=== PATIENT | female | born 1970 | race Caucasian/White ===

== ENCOUNTER → 2024-10-05 | Outpatient (CLI) | payer OTHER, SELFPAY ==
--- NOTE | 2024-10-05 15:59 | CT_ITS ---
PROCEDURE: EXTREMITY LOWER WITHOUT CONTRA 10/05/2024 REASON FOR EXAM: POST TRAUMATIC OA TECHNIQUE: EXTREMITY LOWER WITHOUT CONTRA Coronal and Sagittal reconstruction series were provided. CONTRAST: None One or more dose reduction techniques were used (e.g., Automated exposure control, adjustment of the mA and/or kV according to patient size, use of iterative reconstruction technique). RADIATION DOSE SUMMARY: DLP: 1368 mGycm COMPARISON: None FINDINGS: There is severe tricompartment osteoarthritis, most severe in the medial compartment. There is joint space narrowing, subcortical cyst formation, and marginal osteophytes. No acute fracture or dislocation is identified. There is a 1.1 x 0.6 cm corticated osteochondral fragment in the superior lateral joint space. There is a trace joint effusion. There is a 4.2 cm cyst in the left adnexa partly visible. There is no visible atherosclerosis. CT/Extremity Lower without Contra IMPRESSION: There is a 4.2 cm cyst in the left adnexa partly visible. Ultrasound correlati on is recommended. There is severe tricompartment osteoarthritis, most severe in the medial compar tment. There is joint space narrowing, subcortical cyst formation, and marginal osteop hytes. Reading Location: [facility]
== END | disposition home or self-care (01) ==
LOC: CT 15:56
PROVIDERS: PCP Nurse Practitioner Family; Referring Provider Orthopaedic Surgery; Visit Provider Orthopaedic Surgery
DX: M17.32 Unilateral post-traumatic osteoarthritis, left knee (principal)
CPT/HCPCS: 73700

== ENCOUNTER → 2024-10-24 | Outpatient (CLI) | payer OTHER, SELFPAY ==
--- NOTE | 2024-10-24 10:11 | EKG12_ITS ---
Test Reason : PREOP Blood Pressure : */* mmHG Vent. Rate : 71 BPM Atrial Rate : 71 BPM P-R Int : 152 ms QRS Dur : 84 ms QT Int : 372 ms P-R-T Axes : -26 6 13 degrees QTcB Int : 404 ms Normal sinus rhythm vs low Atrial Rhythm Otherwise normal ECG Confirmed by Frank Delgado ([id number]), web editor NURIA INIGUEZ ([id number]) on 10/24/2024 12:53:19 PM Referred By: Clemente Moseley Confirmed By: Frank Delgado
[2024-10-24 11:11] LABS: Hematocrit 45.1 % (37-47); Hemoglobin 14.8 g/dL (12.0-15.0); Immature Granulocytes Count 0.020 X10^3/uL (0.0-0.0); Mean Corp Hgb Conc 32.8 g/dL (32-36); Mean Corpuscular Volume 93.0 fL (81-99); Mean Platelet Vol. 9.8 fl (6.2-12.0); NRBC Flagged by Analyzer 0 % (0-5); Platelet Count 277 K/mm3 (150-450); RBC Distribution Width CV 14.5 % (11.6-14.6); RBC Distribution Width SD 49.1 fl (35.1-43.9); Red Blood Count 4.85 M/mm3 (4.2-5.4); White Blood Count 4.6 K/mm3 (4.4-11.0)
[2024-10-24 11:48] LABS: Albumin, Serum 4.1 g/dL (3.5-5.0); Anion Gap 11 (5-15); BUN 11 mg/dL (4-19); BUN/Creat Ratio 17.5 RATIO (10-20); Calcium,Total 9.1 mg/dL (7.6-11.0); Carbon Dioxide 25.1 mmol/L (21.0-32.0); Chloride 104 mmol/L (98-108); Glucose 90 mg/dL (70-99); Potassium 4.7 mmol/L (3.3-5.1)
--- OUTSIDE RECORDS SUMMARY | 2024-10-24 18:07 | XMS RPT_ITS | CCD ---
Author Organization 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 Cornejo Attending Provider Dr. Clemente Moseley MD Referring Provider Tal HAND FRETTED INSTRUMENT MAKER-Adin Muniz Primary Care Provider Adin Peters Primary Care Prov ider ADIN PARADA Primary Care UnavailClemente Vega Referring Unavailable Clemente Moseley Attending Unavailable Adin Parada NP Primary Care Unavailable Adin Parada NP Primary Care Unavailable Clemente Moseley Referring Unavailable Clemente Moseley Attending Unavailable ADIN PARADA Attending Unavailable ADIN PARADA Primary Care Unavailable ADIN PARADA Referring Unavailable TAL ADIN C Primary Care Unavailable ADIN PARADA Referring Unavailable ADIN PARADA Primary Care Unavailable Medications Current Medications Medication Drug Class(es) Dates Sig (Normalized) Sig (Original) multivit-minerals/fo lic acid (MULTIVITAMIN GUMMIES ORAL) (9 sources) multivit-mineral s/f olic acid (MULTIVITAMIN GUMMIES ORAL) Take by mouth. Active predniSONE 10 mg oral tablet (9 sources) Start: 10-13-2023 predniSONE (DELTASONE) 10 mg tablet Take 4 tablets for 3 days, then 2 tablets for 3 days, then 1 tablet for 3 days, then stop 21 tablet 10/13/2023 Active Problems Active Problems Problem Classification Problem Date Documented Date Episodic/Chronic E Codes: Fall (3 sources) Fall; Translations: [Unspecified fall, initial encounter] Onset: 10-17-2024 10-17-2024 Episodic Hypertension with complications and secondary hypertension (3 sources) Secondary hypertension; Translations: [Secondary hypertension, unspecified] Onset: 10-17-2024 10-17-2024 Chronic Lymphadenitis (3 sources) Axillary lymphadenopathy; Translations: [Localized enlarged lymph nodes] Onset: 12-15-2023 11-25-2023 Episodic Osteoarthritis (2 sources) Osteoarthrosis, localized, not specified whether primary or secondary, lower leg; Translations: [Unilateral post-traumatic osteoarthritis, left knee] Onset: 11-06-2014 Chronic Other eye disorders (1 source) Vitreous floaters of left eye; Translations: [Other vitreous opacities, left eye] 10-13-2023 Chronic Other eye disorders (1 source) Ptosis of left eyelid; Translations: [Unspecified ptosis of left eyelid] 10-13-2023 Episodic Other eye disorders (1 source) Swelling of eyelid; Translations: [Edema of left eye, unspecified eyelid] 10-13-2023 Episodic Other eye disorders (1 source) Ptosis of left eyebrow; Translations: [Brow ptosis, left] 11-11-2023 Episodic Other eye disorders (1 source) Dermatochalasis of left upper eyelid; Translations: [Dermatochalasis of left upper eyelid] 11-11-2023 Episodic Other non-traumatic joint disorders (2 sources) Pain in left knee; Translations: [Pain in joint, lower leg] Episodic Other skin disorders (1 source) Breast changes; Translations: [Changes in skin texture] 11-10-2023 Episodic Superficial injury; contusion (3 sources) Hematoma of scalp; Translations: [Contusion of scalp, initial encounter] Onset: 10-17-2024 10-17-2024 Episodic Past or Other Problems Problem Classification Problem Date Documented Da te Episodic/Chronic E Codes: Natural/environment (2 sources) Insect bite - wound; Translations: [Bitten or stung by nonvenomous insect and other nonvenomous arthropods, subsequent encounter] Onset: 11-10-2023 11-10-2023 Episodic Immunizations and screening for infectious disease (9 sources) Patient encounter status; Translations: [Encounter for immunization] Onset: 11-10-2023 11-10-2023 Episodic Joint disorders and dislocations; trauma-related (2 sources) Tear of medial cartilage or meniscus of knee, current; Translations: [TEAR MED MENISC KNEE-CUR] Onset: 11-06-2014 Episodic Neoplasms of unspecified nature or uncertain behavior (2 sources) Neoplasm of uncertain behavior of skin; Translations: [Neoplasm of uncertain behavior of skin] Onset: 11-10-2023 11-10-2023 Episodic Other bone disease and musculoskeletal deformities (1 source) Other disorders of bone and cartilage; Translations: [BONE T CARTILAGE DIS N] Onset: 11-06-2014 Episodic Other connective tissue disease (1 source) Synovial cyst of popliteal space; Translations: [POPLITEAL SYNOVIAL CYST] Onset: 11-06-2014 Episodic Other non-traumatic joint disorders (1 source) Effusion of joint, lower leg; Translations: [JOINT EFFUSION-L/LEG] Onset: 11-06-2014 Episodic Other screening for suspected conditions (not mental disorders or infectious disease) (9 sources) Cancer cervix screening status; Translations: [Encounter for screening for malignant neoplasm of cervix] Onset: 11-10-2023 11-10-2023 Episodic Other skin disorders (1 source) Changes in skin texture; Translations: [Change of skin of breast] Onset: 11-10-2023 Episodic Unclassified (1 source) TEAR MED MENISC KNEE-CUR; Translations: [TEAR MED MENISC KNEE-CUR] Onset: 11-06-2014 Results Test Name Value Interpretation Reference Range Facility [facility] 10-17-2024 Bacteria identified Cx Nom (U) Test: Urine Culture Specimen Source: Clean Catch/Voided Specimen Type: Urine Specimen Date: 10/17/2024 1621 Result Date: 10/18/2024 1420 Result Status: Final result Abnormal: No Resulting Lab: [facility] [address] [address] CULTURE Growth indicates contamination with mixed bacterial mart. Repeat culture if clinically indicated. [facility] Comment on above: Performed By: #### 6 30-4 #### ANTWAN Zhang ([id number]) [facility] ([facility]) [address] [place] [address] CBC W Auto Differential pane l (Bld)on 10-17-2024 Basophils (Bld) [#/Vol] 0.04 10*3/uL [facility] Basophils/100 WBC (Bld) 0.6 % 0.0 - 2.0 % [facility] Eosinophils (Bld) [#/Vol] 0.07 10*3/uL [facility] Eosinophils/100 WBC (Bld) 1.0 % 0.0 - 6.0 % [facility] Erythrocyte distribution width (RBC) [Ratio] 14.5 % 11.5 - 14.5 % [facility] Hematocrit (Bld) [Volume fraction] 47.3 % High 36.0 - 46.0 % [facility] Hemoglobin (Bld) [Mass/Vol] 15.3 g/dL 12.0 - 16.0 g/dL [facility] Immature granulocytes (Bld) [#/Vol] 0.02 10*3/uL [facility] Immature granulocytes/100 WBC (Bld) 0.3 % 0.0 - 0.9 % [facility] Comment on above: Immature Granulocyte Count (IG) includes promyelocytes, myelocytes and metamyelocytes but does not include bands. Percent differential counts (%) should be interpreted in the context of the absolute cell counts (cells/UL). Interpretation and review of laboratory results Abnormal [facility] Lymphocytes (Bld) [#/Vol] 1.36 10*3/uL [facility] Lymphocytes/100 WBC (Bld) 19.7 % 13.0 - 44.0 % [facility] MCH (RBC) [Entitic mass] 30.6 pg 26.0 - 34.0 pg [facility] MCHC (RBC) [Mass/Vol] 32.3 g/dL 32.0 - 36.0 g/dL [facility] MCV (RBC) [Entitic vol] 95 fL 80 - 100 fL [facility] Monocytes (Bld) [#/Vol] 0.64 10*3/uL [facility] Monocytes/100 WBC (Bld) 9.2 % 2.0 - 10.0 % [facility] Neutrophils (Bld) [#/Vol] 4.79 10*3/uL [facility] Comment on above: Percent differential counts (%) should be interpreted in the context of the absolute cell counts (cells/uL). Neutrophils/100 WBC (Bld) 69.2 % 40.0 - 80.0 % [facility] Nucleated RBC/100 WBC (Bld) [Ratio] 0.0 % [facility] Platelets (Bld) [#/Vol] 300 10*3/uL [facility] RBC (Bld) [#/Vol] 5.00 10*6/uL [facility] WBC (Bld) [#/Vol] 6.9 10*3/uL [facility] Basophils (Bld) [#/Vol] 0.04 x10*3/uL Normal 0.00-0.10 [facility] Comment on above: Performed By: #### 5 7021-8 #### REYNALDO MASTERS ([id number]) [facility] ([facility]) [address] [place] [address] Basophils/100 WBC (Bld) 0.6 % Normal 0.0-2.0 [facility] Comment on above: Performed By: #### 5 7021-8 #### REYNALDO MASTERS ([id number]) [facility] ([facility]) [address] [place] [address] Eosinophils (Bld) [#/Vol] 0.07 x10*3/uL Normal 0.00-0.70 [facility] Comment on above: Performed By: #### 5 7021-8 #### RYENALDO MASTERS ([id number]) [facility] ([facility]) [address] [place] [address] Eosinophils/100 WBC (Bld) 1.0 % Normal 0.0-6.0 [facility] Comment on above: Performed By: #### 5 7021-8 #### REYNALDO MASTERS ([id number]) [facility] ([facility]) [address] [place] [address] Erythrocyte distribution width (RBC) [Ratio] 14.5 % Normal 11.5-14.5 [facility] Comment on above: Performed By: #### 5 7021-8 #### REYNALDO MASTERS ([id number]) [facility] ([facility]) [address] [place] [address] Hematocrit (Bld) [Volume fraction] 47.3 % High 36.0-46.0 [facility] Comment on above: Performed By: #### 5 7021-8 #### REYNALDO MASTERS ([id number]) [facility] ([facility]) [address] [place] [address] Hemoglobin (Bld) [Mass/Vol] 15.3 g/dL Normal 12.0-16.0 [facility] Comment on above: Performed By: #### 5 7021-8 #### REYNALDO MASTERS ([id number]) [facility] ([facility]) [address] [place] [address] Immature granulocytes (Bld) [#/Vol] 0.02 x10*3/uL Normal 0.00-0.70 [facility] Comment on above: Performed By: #### 5 7021-8 #### REYNALDO MASTERS ([id number]) [facility] ([facility]) [address] [place] [address] Immature granulocytes/100 WBC (Bld) 0.3 % Normal 0.0-0.9 [facility] Comment on above: Result Comment: Roz ture Granulocyte Count (IG) includes promyelocytes, myelocytes and metamyelocytes but does not include bands. Percent differential counts (%) should be interpreted in the context of the absolute cell counts (cells/UL). Performed By: #### 5 7021-8 #### REYNALDO MASTERS ([id number]) [facility] ([facility]) [address] [place] [address] Lymphocytes (Bld) [#/Vol] 1.36 x10*3/uL Normal 1.20-4.80 [facility] Comment on above: Performed By: #### 5 7021-8 #### REYNALDO MASTERS ([id number]) [facility] ([facility]) [address] [place] [address] Lymphocytes/100 WBC (Bld) 19.7 % Normal 13.0-44.0 [facility] Comment on above: Performed By: #### 5 7021-8 #### REYNALDO MASTERS ([id number]) [facility] ([facility]) [address] [place] [address] MCH (RBC) [Entitic mass] 30.6 pg Normal 26.0-34.0 [facility] Comment on above: Performed By: #### 5 7021-8 #### REYNALDO MASTERS ([id number]) [facility] ([facility]) [address] [place] [address] MCHC (RBC) [Mass/Vol] 32.3 g/dL Normal 32.0-36.0 [facility] Comment on above: Performed By: #### 7021-8 #### REYNALDO MASTERS ([id number]) [facility] ([facility]) [address] [place] [address] MCV (RBC) [Entitic vol] 95 fL Normal 80-100 [facility] Comment on above: Performed By: #### 5 7021-8 #### REYNALDO MASTERS ([id number]) [facility] ([facility]) [address] [place] [address] Monocytes (Bld) [#/Vol] 0.64 x10*3/uL Normal 0.10-1.00 [facility] Comment on above: Performed By: #### 5 7021-8 #### REYNALDO MASTERS ([id number]) [facility] ([facility]) [address] [place] [address]84[address] Monocytes/100 WBC (Bld) 9.2 % Normal 2.0-10.0 [facility] Comment on above: Performed By: #### 5 7021-8 #### REYNALDO MASTERS ([id number]) [facility] ([facility]) [address] [place] [address] Neutrophils (Bld) [#/Vol] 4.79 x10*3/uL Normal 1.20-7.70 [facility] Comment on above: Result Comment: Perc ent differential counts (%) should be interpreted in the context of the absolute cell counts (cells/uL). Performed By: #### 5 7021-8 #### REYNALDO MASTERS ([id number]) [facility] ([facility]) [address] [place] [address]87[address] Neutrophils/100 WBC (Bld) 69.2 % Normal 40.0-80.0 [facility] Comment on above: Performed By: #### 5 7021-8 #### REYNALDO MASTERS ([id number]) [facility] ([facility]) [address] [place] [address]17[address] Nucleated RBC/100 WBC (Bld) [Ratio] 0.0 /100 WBCs Normal 0.0-0.0 [facility] Comment on above: Performed By: #### 5 7021-8 #### REYNALDO MASTERS ([id number]) [facility] ([facility]) [address] [place] [address] Platelets (Bld) [#/Vol] 300 x10*3/uL Normal 150-450 [facility] Comment on above: Performed By: #### 5 7021-8 #### REYNALDO MASTERS ([id number]) [facility] ([facility]) [address] [place] [address] RBC (Bld) [#/Vol] 5.00 x10*6/uL Normal 4.00-5.20 [facility] Comment on above: Performed By: #### 5 7021-8 #### REYNALDO MASTERS ([id number]) [facility] ([facility]) [address] [place] [address]19 WBC (Bld) [#/Vol] 6.9 x10*3/uL Normal 4.4-11.3 [facility] Comment on above: Performed By: #### 5 7021-8 #### REYNALDO MASTERS ([id number]) [facility] ([facility]) [address] [place] [address] CT HEAD WO IV CONTRASTon CT HEAD WO IV CONTRAST Interpreted By: Amrita Cohn, STUDY: CT HEAD WO IV CONTRAST; 10/17/2024 4:19 pm INDICATION: Signs/Symptoms:facial injury. COMPARISON: None. ACCESSION NUMBER(S): [id number] ORDERING CLINICIAN: TJ LEZAMA TECHNIQUE: Axial images of 5 mm thickness were obtained through the head without intravenous contrast sagittal and coronal reconstructions were acquired. FINDINGS: BRAIN PARENCHYMA: Park-white matter interface well maintained. No masses are seen. No mass effect. HEMORRHAGE: None. VENTRICLES and EXTRA-AXIAL SPACES: Normal size. INTRACRANIAL VESSELS: No atherosclerotic calcification. EXTRACRANIAL SOFT TISSUES: Left frontal scalp hematoma is noted. PARANASAL SINUSES/MASTOIDS: Within normal limits. CALVARIUM: No destructive lesion or fracture. IMPRESSION: No acute intracranial abnormality. Small left frontal scalp hematoma. MACRO: None Signed by: Amrita Cohn 10/17/2024 5:08 PM Dictation workstation: [id number] [facility] CT Head WO contraston 2024 No acute intracrania l abnormality. Small left frontal scalp hematoma. MACRO: None Signed by: Amrita Cohn 10/17/2024 5:08 PM Dictation workstation: [id number] [facility]ODAL Interpreted By: Amrita Cohn, STUDY: CT HEAD WO IV CONTRAST; 10/17/2024 4:19 pm INDICATION: Signs/Symptoms:facial injury. COMPARISON: None. ACCESSION NUMBER(S): [id number] ORDERING CLINICIAN: TJ ELZAMA TECHNIQUE: Axial images of 5 mm thickness were obtained through the head without intravenous contrast sagittal and coronal reconstructions were acquired. FINDINGS: BRAIN PARENCHYMA: Park-white matter interface well maintained. No masses are seen. No mass effect. HEMORRHAGE: None. VENTRICLES and EXTRA-AXIAL SPACES: Normal size. INTRACRANIAL VESSELS: No atherosclerotic calcification. EXTRACRANIAL SOFT TISSUES: Left frontal scalp hematoma is noted. PARANASAL SINUSES/MASTOIDS: Within normal limits. CALVARIUM: No destructive lesion or fracture. [facility] MM[facility]AL Amrita Cohn MD - 10/17/2024 Interpreted By: Amrita Cohn, STUDY: CT HEAD WO IV CONTRAST; 10/17/2024 4:19 pm INDICATION: Signs/Symptoms:facial injury. COMPARISON: None. ACCESSION NUMBER(S): [id number] ORDERING CLINICIAN: TJ LEZAMA TECHNIQUE: Axial images of 5 mm thickness were obtained through the head without intravenous contrast sagittal and coronal reconstructions were acquired. FINDINGS: BRAIN PARENCHYMA: Park-white matter interface well maintained. No masses are seen. No mass effect. HEMORRHAGE: None. VENTRICLES and EXTRA-AXIAL SPACES: Normal size. INTRACRANIAL VESSELS: No atherosclerotic calcification. EXTRACRANIAL SOFT TISSUES: Left frontal scalp hematoma is noted. PARANASAL SINUSES/MASTOIDS: Within normal limits. CALVARIUM: No destructive lesion or fracture. IMPRESSION: No acute intracranial abnormality. Small left frontal scalp hematoma. MACRO: None Signed by: Amrita Cohn 10/17/2024 5:08 PM Dictation workstation: [id number] [facility] Work Phone: Radiology Study observation (narrative) [facility] Work Phone: CT Head WO contrastOrdered B y: Amrita Cohn on 10-17-2024 [facility] Work Phone: Coagulation tissue factor in ducedon 10-17-2024 PT Coag (PPP) [Time] 12.0 s Normal 9.8-12.4 [facility] Comment on above: Performed By: #### 5 902-2 #### JACOBS GUERRERO ([id number]) [facility] ([facility]) [address] [place] [address] Comprehensive metabolic 2000 panelon 10-17-2024 Albumin BCP dye [Mass/Vol] 4.1 g/dL 3.4 - 5.0 g/dL [facility] ALP [Catalytic activity/Vol] 72 U/L 33 - 110 U/L [facility] ALT With P-5'-P [Catalytic activity/Vol] 13 U/L 7 - 45 U/L [facility] Comment on above: Patients treated wit h Sulfasalazine may generate falsely decreased results for ALT. Anion gap [Moles/Vol] 11 mmol/L 10 - 20 mmol/L [facility] AST With P-5'-P [Catalytic activity/Vol] 13 U/L 9 - 39 U/L [facility] Bilirubin [Mass/Vol] 0.7 mg/dL 0.0 - 1 .2 mg/dL [facility] Calcium [Mass/Vol] 9.3 mg/dL 8.6 - 10. 3 mg/dL [facility] Chloride [Moles/Vol] 103 mmol/L 98 - 10 7 mmol/L [facility] CO2 [Moles/Vol] 28 mmol/L 21 - 32 mmol/L [facility] Creatinine [Mass/Vol] 1.06 mg/dL High 0.50 - 1.05 mg/dL [facility] GFR/1.73 sq M.predicted among non-blacks MDRD (S/P/Bld) [Vol rate/Area] 62 mL/min/{1.73_m2} - PINF [facility] Comment on above: Calculations of jose rafael mated GFR are performed using the 2020 CKD-EPI Study Refit equation without the race variable for the IDMS-Traceable creatinine methods. https://jasn.asnjournals.org/content/early//ASN.968184 4313 Glucose [Mass/Vol] 99 mg/dL 74 - 99 mg/dL [facility] Interpretation and review of laboratory results Abnormal [facility] Potassium [Moles/Vol] 4.1 mmol/L 3.5 - 5.3 mmol/L [facility] Protein [Mass/Vol] 6.9 g/dL 6.4 - 8.2 g/dL [facility] Sodium [Moles/Vol] 138 mmol/L 136 - 145 mmol/L [facility] Urea nitrogen [Mass/Vol] 16 mg/dL 6 - 23 mg/dL [facility] Albumin BCP dye [Mass/Vol] 4.1 g/dL Normal 3.4-5.0 [facility] Comment on above: Performed By: #### 2 4323-8 #### JACOBS GUERRERO ([id number]) [facility] ([facility]) [address] [place] [address] ALP [Catalytic activity/Vol] 72 U/L Normal 33-110 [facility] Comment on above: Performed By: #### 2 4323-8 #### REYNALDO MASTERS ([id number]) [facility] ([facility]) [address] [place] [address] ALT With P-5'-P [Catalytic activity/Vol] 13 U/L Normal 7-45 [facility] Comment on above: Result Comment: Mariam ents treated with Sulfasalazine may generate falsely decreased results for ALT. Performed By: #### 2 4323-8 #### REYNALDO MASTERS ([id number]) [facility] ([facility]) [address] [place] [address] Anion gap [Moles/Vol] 11 mmol/L Normal 10-20 [facility] Comment on above: Performed By: #### 2 432-8 #### REYNALDO MASTERS ([id number]) [facility] ([facility]) [address] [place] [address] AST With P-5'-P [Catalytic activity/Vol] 13 U/L Normal 9-39 [facility] Comment on above: Performed By: #### 2 432-8 #### REYNALDO MASTERS ([id number]) [facility] ([facility]) [address] [place] [address] Bilirubin [Mass/Vol] 0.7 mg/dL Normal 0.0-1.2 [facility] Comment on above: Performed By: #### 2 432-8 #### REYNALDO MASTERS ([id number]) [facility] ([facility]) [address] [place] [address] Calcium [Mass/Vol] 9.3 mg/dL Normal 8.6-10.3 [facility] Comment on above: Performed By: #### 2 4323-8 #### REYNALDO MASTERS ([id number]) [facility] ([facility]) [address] [place] [address] Chloride [Moles/Vol] 103 mmol/L Normal 98-107 [facility] Comment on above: Performed By: #### 2 4323-8 #### REYNALDO MASTERS ([id number]) [facility] ([facility]) [address] [place] [address] CO2 [Moles/Vol] 28 mmol/L Normal 21-32 [facility] Comment on above: Performed By: #### 2 4323-8 #### REYNALDO MASTERS ([id number]) [facility] ([facility]) [facility] [place] [address] Creatinine [Mass/Vol] 1.06 mg/dL High 0.50-1.05 [facility] Comment on above: Performed By: #### 2 432-8 #### REYNALDO MASTERS ([id number]) [facility] ([facility]) [address] [place] [address]111 Glomerular filtration rate 62 mL/min/1.73m*2 Normal >60 [facility] Comment on above: Result Comment: Calc ulations of estimated GFR are performed using the 2020 CKD-EPI Study Refit equation without the race variable for the IDMS-Traceable creatinine methods. https://jasn.asnjournals.org/content/early//ASN.733937 6531 Performed By: #### 2 4323-8 #### REYNALDO MASTERS ([id number]) [facility] ([facility]) [address] [place] [address] 84329 Glucose [Mass/Vol] 99 mg/dL Normal 74-99 [facility] Comment on above: Performed By: #### 2 4323-8 #### REYNALDO MASTERS ([id number]) [facility] ([facility]) [address] [place] [address] Potassium [Moles/Vol] 4.1 mmol/L Normal 3.5-5.3 [facility] Comment on above: Performed By: #### 2 4323-8 #### REYNALDO MASTERS ([id number]) [facility] ([facility]) [facility] [place] [address] Protein [Mass/Vol] 6.9 g/dL Normal 6.4-8.2 [facility] Comment on above: Performed By: #### 2 4323-8 #### REYNALDO MASTERS ([id number]) [facility] ([facility]) [address] [id number] Sodium [Moles/Vol] 138 mmol/L Normal 136-145 [facility] Comment on above: Performed By: #### 2 4323-8 #### REYNALDO MASTERS ([id number]) [facility] ([facility]) [facility] [place] [address] Urea nitrogen [Mass/Vol] 16 mg/dL Normal 6-23 [facility] Comment on above: Performed By: #### 2 4323-8 #### JACOBS GUERRERO ([id number]) [facility] ([facility]) [address] [place] [address] ECG 12-LEADon 10-17-2024 ECG 12-LEAD Ventricular Rate 88 Atrial Rate 88 P-R Interval 166 QRS Duration 82 Q-T Interval 334 QTC Calculation(Bazett) 404 P Huron 40 R Huron 10 T Huron 18 QRS Count 14 Q Onset 218 P Onset 135 P Offset 193 T Offset 385 QTC Fredericia 379 Diagnosis Normal sinus rhythm Normal ECG No previous ECGs available See ED provider note for full interpretation and clinical correlation Confirmed by Ministerio Enriquez ([id number]) on 10/18/2024 12:11:53 PM Normal [facility] Natriuretic peptide B [Mass/ Vol]on 10-17-2024 Interpretation and review of laboratory results Normal [facility] Natriuretic peptide B (Bld) [Mass/Vol] 53 pg/mL 0 - 99 pg/mL [facility] <100 pg/mL - Heart failure unlikely 100-299 pg/mL - Intermediate probability of acute heart failure exacerbation. Correlate with clinical context and patient history. >=300 pg/mL - Heart Failure likely. Correlate with clinical context and patient history. BNP testing is performed using different testing methodology at [facility] than at other [facility]. Direct result comparisons should only be made within the same method. [facility] Natriuretic peptide B (Bld) [Mass/Vol] 53 pg/mL Normal 0-99 [facility] Comment on above: Order Comment: <100 pg/mL - Heart failure unlikely 100-299 pg/mL - Intermediate probability of acute heart failure exacerbation. Correlate with clinical context and patient history. >=300 pg/mL - Heart Failure likely. Correlate with clinical context and patient history. BNP testing is performed using different testing methodology at [facility] than at other [facility]. Direct result comparisons should only be made within the same method. Performed By: #### 3 0934-4 #### REYNALDO MASTERS ([id number]) [facility] ([facility]) [facility] [place] [address] No Panel Informationon 10-17 [facility] PT Coag (PPP) [Time]on 10-17 INR Coag (PPP) [Relative time] 1.1 {INR} 0.9 - 1.1 [facility] Interpretation and review of laboratory results Normal [facility] INR Coag (PPP) [Relative time] 1.1 Normal 0.9-1.1 [facility] Comment on above: Performed By: #### 5 902-2 #### REYNALDO MASTERS ([id number]) [facility] ([facility]) [facility] [place] [address] Protime-INRon 10-17-2024 PT Coag (PPP) [Time] 12.0 s [facility] Tropinin I.cardiac panel Hig h sensitivity methodon 10-17-2024 Interpretation and review of laboratory results Normal [facility] Less than 99th percentile of normal range cutoff- Female and children under 18 years old <14 ng/L; Male <21 ng/L: Negative Repeat testing should be performed if clinically indicated. Female and children under 18 years old 14-50 ng/L; Male 21-50 ng/L: Consistent with possible cardiac damage and possible increased clinical risk. Serial measurements may help to assess extent of myocardial damage. >50 ng/L: Consistent with cardiac damage, increased clinical risk and myocardial infarction. Serial measurements may help assess extent of myocardial damage. NOTE: Children less than 1 year old may have higher baseline troponin levels and results should be interpreted in conjunction with the overall clinical context. NOTE: Troponin I testing is performed using a different testing methodology at [facility] than at other [facility]. Direct result comparisons should only be made within the same method. [facility] Troponin I, High Sensitivity on 10-17-2024 Tropinin I.cardiac panel High sensitivity method 3 ng/L 0 - 13 ng/L [facility] Troponin I.cardiac panelon 0 10-17-2024 Tropinin I.cardiac panel High sensitivity method 3 ng/L Normal 0-13 [facility] Comment on above: Order Comment: Less than 99th percentile of normal range cutoff- Female and children under 18 years old <14 ng/L; Male <21 ng/L: Negative Repeat testing should be performed if clinically indicated. Female and children under 18 years old 14-50 ng/L; Male 21-50 ng/L: Consistent with possible cardiac damage and possible increased clinical risk. Serial measurements may help to assess extent of myocardial damage. >50 ng/L: Consistent with cardiac damage, increased clinical risk and myocardial infarction. Serial measurements may help assess extent of myocardial damage. NOTE: Children less than 1 year old may have higher baseline troponin levels and results should be interpreted in conjunction with the overall clinical context. NOTE: Troponin I testing is performed using a different testing methodology at [facility] than at other [facility]. Direct result comparisons should only be made within the same method. Performed By: #### 8 9577-1 #### JACOBS GUERRERO ([id number]) [facility] ([facility]) [address] [place] [address] Urinalysis complete W Reflex Culture panel (U)on 10-17-2024 Appearance (U) Clear Clear [facility] Bilirubin (U) [Mass/Vol] Negative NEGATIVE mg/dL [facility] Color (U) Light-Yellow Light-Yellow, Yellow, Dark-Yellow [facility] Glucose Auto test strip (U) [Mass/Vol] Normal Normal mg/dL [facility] Interpretation and review of laboratory results Abnormal [facility] Ketones (U) [Mass/Vol] Negative NEGATIVE mg/dL [facility] Leukocyte esterase Auto test strip Ql (U) 25 Reilly/uL Abnormal NEGATIVE [facility] Nitrite Auto test strip Ql (U) Negative NEGATIVE [facility] pH (U) 6.5 [pH] 5.0, 5.5, 6.0, 6.5, 7.0, 7.5, 8.0 [facility] Protein (U) [Mass/Vol] Negative NEGATIVE, 10 (TRACE), 20 (TRACE) mg/dL [facility] RBC (U) [#/Vol] 0.03 (TRACE) Abnormal NEGATIVE mg/dL [facility] Specific gravity (U) [Rel density] 1.023 1.005 - 1.035 [facility] Urobilinogen (U) [Mass/Vol] Normal Normal mg/dL [facility] Appearance (U) Clear Normal Clear [facility] Comment on above: Performed By: #### 5 8077-9 #### REYNALDO MASTERS ([id number]) [facility] ([facility]) [address] [place] [address] Bilirubin (U) [Mass/Vol] Negative Normal NEGATIVE [facility] Comment on above: Performed By: #### 5 8077-9 #### REYNALDO MASTERS ([id number]) [facility] ([facility]) [address] [place] [address] Color (U) Light-Yellow Normal Light-Yellow, Yellow, Dark-Yellow [facility] Comment on above: Performed By: #### 5 8077-9 #### REYNALDO MASTERS ([id number]) [facility] ([facility]) [address] [place] [address] Glucose Auto test strip (U) [Mass/Vol] Normal Normal Normal [facility] Comment on above: Performed By: #### 5 8077-9 #### REYNALDO MASTERS ([id number]) [facility] ([facility]) [address] [place] [address] Ketones (U) [Mass/Vol] Negative Normal NEGATIVE [facility] Comment on above: Performed By: #### 5 8077-9 #### REYNALDO MATSERS ([id number]) [facility] ([facility]) [address] [place] [address] Leukocyte esterase Auto test strip Ql (U) 25 Reilly/uL Abnormal NEGATIVE [facility] Comment on above: Performed By: #### 5 8077-9 #### REYNALDO MASTERS ([id number]) [facility] ([facility]) [address] [place] [address] Nitrite Auto test strip Ql (U) Negative Normal NEGATIVE [facility] Comment on above: Performed By: #### 5 8077-9 #### REYNALDO MASTERS ([id number]) [facility] ([facility]) [address] [place] [address] pH (U) 6.5 [pH] Normal 5.0, 5.5, 6.0, 6.5, 7.0, 7.5, 8.0 [facility] Comment on above: Performed By: #### 5 8077-9 #### REYNALDO MASTERS ([id number]) [facility] ([facility]) [address] [place] [address] Protein (U) [Mass/Vol] Negative Normal NEGATIVE, 10 (TRACE), 20 (TRACE) [facility] Comment on above: Performed By: #### 5 8077-9 #### REYNALDO MASTERS ([id number]) [facility] ([facility]) [address] [place] [address] RBC (U) [#/Vol] 0.03 (TRACE) Abnormal NEGATIVE [facility] Comment on above: Performed By: #### 5 8077-9 #### REYNALDO MASTERS ([id number]) [facility] ([facility]) [address] [place] [address] Specific gravity (U) [Rel density] 1.023 Normal 1.005-1.035 [facility] Comment on above: Performed By: #### 5 8077-9 #### REYNALDO MASTERS ([id number]) [facility] ([facility]) [address] [place] [address] Urobilinogen (U) [Mass/Vol] Normal Normal Normal [facility] Comment on above: Performed By: #### 5 8077-9 #### REYNALDO MASTERS ([id number]) [facility] ([facility]) [address] [place] [address] Urinalysis microscopic panel Auto Ql (U)on 10-17-2024 Epithelial cells.squamous Auto (Urine sed) [#/Area] 1-9 (SPARSE) Reference range not established. /HPF [facility] Mucus Auto (Urine sed) [#/Area] FEW Reference range not established. /LPF [facility] RBC Auto (Urine sed) [#/Area] 1-2 NONE, 1-2, 3-5 /HPF [facility] WBC Auto (Urine sed) [#/Area] NONE 1-5, NONE /HPF [facility] Epithelial cells.squamous Auto (Urine sed) [#/Area] 1-9 (SPARSE) Normal Reference range not established. [facility] Comment on above: Performed By: #### 5 3315-8 #### REYNALDO MASTERS ([id number]) [facility] ([facility]) [address] [place] [address] Mucus Auto (Urine sed) [#/Area] FEW Normal Reference range not established. [facility] Comment on above: Performed By: #### 5 3315-8 #### REYNALDO MASTERS ([id number]) [facility] ([facility]) [address] [place] [address] RBC Auto (Urine sed) [#/Area] 1-2 Normal NONE, 1-2, 3-5 [facility] Comment on above: Performed By: #### 5 3315-8 #### REYNALDO MASTERS ([id number]) [facility] ([facility]) [facility] [place] [address] WBC Auto (Urine sed) [#/Area] NONE Normal 1-5, NONE [facility] Comment on above: Performed By: #### 5 3315-8 #### REYNALDO MASTERS ([id number]) [facility] ([facility]) [address] [place] [address] Extremity Lower without Cont raon 10-05-2024 Extremity Lower without Contra [facility] [address] [place] [address] Extremity Lower without Contra MR#: [id number] Acct: [id number] Name: BETHANY BOYD MARY Rep #: [id number] : 1970 F 54 From: Cr Isaac MD PCP: CAMRYN Duarte Status: REG CLI Study: Extremity Lower without Contra Date of Exam: 0 10/05/24 Exam# [id number] Ordering Dr: Clemente Moseley MD PROCEDURE: EXTREMITY LOWER WITHOUT CONTRA 10/05/2024 REASON FOR EXAM: POST TRAUMATIC OA TECHNIQUE: EXTREMITY LOWER WITHOUT CONTRA Coronal and Sagittal reconstruction series were provided. CONTRAST: None One or more dose reduction techniques were used (e.g., Automated exposure control, adjustment of the mA and/or kV according to patient size, use of iterative reconstruction technique). RADIATION DOSE SUMMARY: DLP: 1368 mGycm COMPARISON: None FINDINGS: There is severe tricompartment osteoarthritis, most severe in the medial compartment. There is joint space narrowing, subcortical cyst formation, and marginal osteophytes. No acute fracture or dislocation is identified. There is a 1.1 x 0.6 cm corticated osteochondral fragment in the superior lateral joint space. There is a trace joint effusion. There is a 4.2 cm cyst in the left adnexa partly visible. There is no visible atherosclerosis. CT/Extremity Lower without Contra IMPRESSION: There is a 4.2 cm cyst in the left adnexa partly visible. Ultrasound correlation is recommended. There is severe tricompartment osteoarthritis, most severe in the medial compartment. There is joint space narrowing, subcortical cyst formation, and marginal osteophytes. Reading Location: [facility] CC: CAMRYN Pardaa; Dr. Clemente Moseley MD Cotton Factor: Signed [facility] 12-15-2023 [facility] Telephone (ATTILA) BETHANY BOYD ([id number]) 1970 F Date Time Provider Department 12/15/23 ADIN PARADA During your visit today, we recorded the following information about you: Michael Sabillon MA 12/15/2023 1:13 PM Signed ----- Message from Adin Parada APRN.LEANNA sent at 12/15/2023 12:30 PM EDT ----- Please notify patient results are normal. Thank you. Adin Parada APRN.Michael Donovan MA 12/15/2023 1:14 PM Signed Patient informed of ultrasound results. Michael Sabillon MA Allergies As of Date: 12/15/2023 (No Known Allergies) Date Reviewed: 11/11/2023 Reviewed by: Charles Alvarado MD - Fully Assessed Reason for Visit: Results [95] Prescriptions as of 12/15/2023 - multivit-minerals/fol ic acid (MULTIVITAMIN GUMMIES ORAL) Take by mouth. - predniSONE (DELTASONE) 10 mg tablet Take 4 tablets for 3 days, then 2 tablets for 3 days, then 1 tablet for 3 days, then stop Problem List As Of Date: 12/15/2023 (None) Encounter Status:Closed by MICHAEL SABILLON on 12/15/23 Normal [facility] US AXILLA ONLY LTon 10-2 [facility] US AXILLA ONLY LT * * *Final Report* * * DATE OF EXAM: Dec 15 2023 9:13AM [facility] 0591 - [facility] US AXILLA ONLY LT / PROCEDURE REASON: Axillary lymphadenopathy * * * * Physician Interpretation * * * * [address] [place] [address] HISTORY: Patient is 53 years old and is seen for diagnostic evaluation of a suspicious axillary lymph node seen on prior mammogram. Patient states no personal history of breast cancer. Patient states no personal history of other cancers. COMPARISON STUDIES: The present examination has been compared to a prior imaging study dated 11/24/2023 (mammogram). ULTRASOUND TECHNIQUE: Targeted ultrasound of the left axilla was performed. Park scale images were saved. ULTRASOUND FINDINGS: There is a lymph node measuring 1.9 cm in the left axilla. No suspicious sonographic features. No vascularity demonstrated on color Doppler. This correlates with the mammographic finding. No suspicious lymph node or other sonographic abnormality seen in the left axilla. IMPRESSION: Prominent left axillary lymph node correlating with the mammographic finding. No suspicious sonographic features. There is no sonographic evidence of malignancy. Return to annual screening mammogram is recommended. The patient will be due in 1 year. BI-RADS Category 2: Benign Interpreting Radiologist: Lety Maya M.D. Electronically signed on: 12/15/2023 Cotton Factor: MARTITA Transcribe Date/Time: Dec 15 2023 9:00A Dictated by : LETY MAYA MD This examination was interpreted and the report reviewed and electronically signed by: LETY MAYA MD on Dec 15 2023 9:43AM EST [id number] N [facility] US Axilla - lefton IMPRESSION: Prominent left axillary lymph node correlating with the mammographic finding. No suspicious sonographic features. There is no sonographic evidence of malignancy. Return to annual screening mammogram is recommended. The patient will be due in 1 year. BI-RADS Category 2: Benign Interpreting Radiologist: Lety Maya M.D. Electronically signed on: 12/15/2023 Cotton Factor: MARTITA Transcribe Date/Time: Dec 15 2023 9:00A Dictated by : LETY MAYA MD This examination was interpreted and the report reviewed and electronically signed by: LETY MAYA MD on Dec 15 2023 9:43AM [facility] * * *Final Report* * * DATE OF EXAM: Dec 15 2023 9:13AM [facility] 0591 - [facility] US AXILLA ONLY LT / PROCEDURE REASON: Axillary lymphadenopathy * * * * Physician Interpretation * * * * [facility] [address] [place] [address] HISTORY: Patient is 53 years old and is seen for diagnostic evaluation of a suspicious axillary lymph node seen on prior mammogram. Patient states no personal history of breast cancer. Patient states no personal history of other cancers. COMPARISON STUDIES: The present examination has been compared to a prior imaging study dated 11/24/2023 (mammogram). ULTRASOUND TECHNIQUE: Targeted ultrasound of the left axilla was performed. Park scale images were saved. ULTRASOUND FINDINGS: There is a lymph node measuring 1.9 cm in the left axilla. No suspicious sonographic features. No vascularity demonstrated on color Doppler. This correlates with the mammographic finding. No suspicious lymph node or other sonographic abnormality seen in the left axilla. [facility] Provider, Luis Akhtar - 12/15/2023 * * *Final Report* * * DATE OF EXAM: Dec 15 2023 9:13AM W 0591 - [facility] US AXILLA ONLY LT / PROCEDURE REASON: Axillary lymphadenopathy * * * * Physician Interpretation * * * * [facility] [address] [place] [address] HISTORY: Patient is 53 years old and is seen for diagnostic evaluation of a suspicious axillary lymph node seen on prior mammogram. Patient states no personal history of breast cancer. Patient states no personal history of other cancers. COMPARISON STUDIES: The present examination has been compared to a prior imaging study dated 11/24/2023 (mammogram). ULTRASOUND TECHNIQUE: Targeted ultrasound of the left axilla was performed. Park scale images were saved. ULTRASOUND FINDINGS: There is a lymph node measuring 1.9 cm in the left axilla. No suspicious sonographic features. No vascularity demonstrated on color Doppler. This correlates with the mammographic finding. No suspicious lymph node or other sonographic abnormality seen in the left axilla. IMPRESSION IMPRESSION: Prominent left axillary lymph node correlating with the mammographic finding. No suspicious sonographic features. There is no sonographic evidence of malignancy. Return to annual screening mammogram is recommended. The patient will be due in 1 year. BI-RADS Category 2: Benign Interpreting Radiologist: Lety Maya M.D. Electronically signed on: 12/15/2023 Cotton Factor: MARTITA Transcribe Date/Time: Dec 15 2023 9:00A Dictated by : LETY MAYA MD This examination was interpreted and the report reviewed and electronically signed by: LETY MAYA MD on Dec 15 2023 9:43AM EST [facility] Radiology Study observation (narrative) [facility] US Axilla - leftOrdered By: Ccf Provider on 12-15-2023 [facility] CNPNon 11-25-2023 CNPN Telephone (AGFAMPLE) OLIVERBETHANY ([id number]) 1970 F Date Time Provider Department 11/25/23 ADIN PARADA During your visit today, we recorded the following information about you: Adin Parada APRN.CNP 11/25/2023 5:15 PM Signed Mammogram was normal besides a lump in the left axilla - likely a lymph node. They recommend getting an ultrasound - see orders. MUSA Osborn Julie, MA 11/26/2023 5:19 PM Signed Patient is informed Mary Ann Draper MA Allergies As of Date: 11/25/2023 (No Known Allergies) Date Reviewed: 11/11/2023 Reviewed by: Charles Alvarado MD - Fully Assessed Reason for Visit: Results [95] Cmt: Mammogram Primary Visit Diagnosis:Axillary lymphadenopathy [R59.0] Order(s):US AXILLA ONLY LEFT [[id number]] Order #: [id number] FUTURE Prescriptions as of 11/26/2023 - multivit-minerals/fol ic acid (MULTIVITAMIN GUMMIES ORAL) Take by mouth. - predniSONE (DELTASONE) 10 mg tablet Take 4 tablets for 3 days, then 2 tablets for 3 days, then 1 tablet for 3 days, then stop Problem List As Of Date: 11/25/2023 (None) Encounter Status:Closed by MARY ANN DRAPER on 11/26/23 [facility] DBT Breast - bilateral celia floresveronica 11-25-2023 * * *Final Report* * * DATE OF EXAM: Nov 24 2023 8:56AM [facility] 0582 - [facility] SCREENING W ADAM / PROCEDURE REASON: Encounter for screening mammogram for breast cancer * * * * Physician Interpretation * * * * [address] [place] [address] HISTORY: Patient is 53 years old and is seen for screening. No current complaints. The patient has no personal history of cancer. COMPARISON STUDIES: No prior imaging studies are available for comparison. MAMMOGRAM TECHNIQUE: The study was acquired using full field digital technology and interpreted from soft copy. Digital Breast Tomosynthesis (DBT) images were obtained and used to assist in the interpretation of this examination. Computer-aided detection was utilized by the radiologist in the interpretation of this examination. MAMMOGRAM FINDINGS: There are scattered areas of fibroglandular density. There is a lymph node in the left axilla. In the right breast, no suspicious masses, calcifications or other abnormalities are seen. [facility]GO Provider, [facility] - 11/25/2023 * * *Final Report* * * DATE OF EXAM: Nov 24 2023 8:56AM [facility] 0582 - [facility] SCREENING W ADAM / PROCEDURE REASON: Encounter for screening mammogram for breast cancer * * * * Physician Interpretation * * * * [place] [address] HISTORY: Patient is 53 years old and is seen for screening. No current complaints. The patient has no personal history of cancer. COMPARISON STUDIES: No prior imaging studies are available for comparison. MAMMOGRAM TECHNIQUE: The study was acquired using full field digital technology and interpreted from soft copy. Digital Breast Tomosynthesis (DBT) images were obtained and used to assist in the interpretation of this examination. Computer-aided detection was utilized by the radiologist in the interpretation of this examination. MAMMOGRAM FINDINGS: There are scattered areas of fibroglandular density. There is a lymph node in the left axilla. In the right breast, no suspicious masses, calcifications or other abnormalities are seen. IMPRESSION IMPRESSION: Lymph node in the left axilla requires additional evaluation. Axillary ultrasound is recommended. BI-RADS Category 0: Incomplete: Needs Additional Imaging Evaluation RISK: Based on the Tyrer-Cuzick (TC) risk assessment model, this patient has a 4.7% lifetime risk of developing breast cancer, meaning they are at average risk for developing breast cancer. However, this is only an estimate based on available history provided on the patient's questionnaire. We encourage all patients talk with their providers about these results, further recommendations for managing breast health, and appropriate supplemental screening options if the patient has dense breast tissue. Interpreting Radiologist: Clari June M.D. Electronically signed on: 11/25/2023 Cotton Factor: MARTITA Transcribe Date/Time: Nov 24 2023 8:31A Dictated by : CLARI JUNE MD This examination was interpreted and the report reviewed and electronically signed by: CLARI JUNE MD on Nov 25 2023 2:38PM EST [facility] DBT Breast - bilateral scree ningOrdered By: Ccf Provider on 11-25-2023 [facility] DBT Breast - bilateral scree ningon 11-24-2023 Radiology Study observation (narrative) [facility] ONEIL SCREENING W TOMOon 11-23 [facility] SCREENING W ADAM * * *Final Report* * * DATE OF EXAM: Nov 24 2023 8:56AM [facility] 0582 - [facility] SCREENING W ADAM / PROCEDURE REASON: Encounter for screening mammogram for breast cancer * * * * Physician Interpretation * * * * [place] [address] HISTORY: Patient is 53 years old and is seen for screening. No current complaints. The patient has no personal history of cancer. COMPARISON STUDIES: No prior imaging studies are available for comparison. MAMMOGRAM TECHNIQUE: The study was acquired using full field digital technology and interpreted from soft copy. Digital Breast Tomosynthesis (DBT) images were obtained and used to assist in the interpretation of this examination. Computer-aided detection was utilized by the radiologist in the interpretation of this examination. MAMMOGRAM FINDINGS: There are scattered areas of fibroglandular density. There is a lymph node in the left axilla. In the right breast, no suspicious masses, calcifications or other abnormalities are seen. IMPRESSION: Lymph node in the left axilla requires additional evaluation. Axillary ultrasound is recommended. BI-RADS Category 0: Incomplete: Needs Additional Imaging Evaluation RISK: Based on the Tyrer-Cuzick (TC) risk assessment model, this patient has a 4.7% lifetime risk of developing breast cancer, meaning they are at average risk for developing breast cancer. However, this is only an estimate based on available history provided on the patient's questionnaire. We encourage all patients talk with their providers about these results, further recommendations for managing breast health, and appropriate supplemental screening options if the patient has dense breast tissue. Interpreting Radiologist: Clari June M.D. Electronically signed on: 11/25/2023 Cotton Factor: MARTITA Transcribe Date/Time: Nov 24 2023 8:31A Dictated by : CLARI JUNE MD This examination was interpreted and the report reviewed and electronically signed by: CLARI JUNE MD on Nov 25 2023 2:38PM EST [id number] N Normal [facility] COURTNEY Telephone (MADALYNMPDARIELA) BETHANY BOYD ([id number]) 1970 F Date Time Provider Department 11/13/23 ADIN PARADA During your visit today, we recorded the following information about you: Adin Parada APRN.CNP 11/13/2023 1:48 PM Signed Pap is normal, HPV negative TSH normal CBC normal Glucose 101 Liver and kidney function normal Cholesterol levels are elevated but overall risk for heart disease is low. I would like her to work on low fat diet, increase fiber, increase physical activity Lyme test is negative The 10-year ASCVD risk score (Dakotah CROWELL, et al., 2019) is: 2% Values used to calculate the score: Age: 53 years Sex: Female Is Non- : No Diabetic: No Tobacco smoker: No Systolic Blood Pressure: 128 mmHg Is BP treated: No HDL Cholesterol: 65 mg/dL Total Cholesterol: 239 mg/dL MUSA [place], [place] 11/13/2023 3:02 PM Signed Left message on patients vm to contact office and let us know if we can leave results on her vm or check her my chart message for results. Uzma Simmons MA ArvinddavidUzma grady JORDANA 11/13/2023 3:06 PM Signed Patient received my chart message. Uzma Simmons MA Allergies As of Date: 11/13/2023 (No Known Allergies) Date Reviewed: 11/11/2023 Reviewed by: Charles Alvarado MD - Fully Assessed Reason for Visit: Results [95] Cmt: Pap, Labs Prescriptions as of 11/13/2023 - multivit-minerals/fol ic acid (MULTIVITAMIN GUMMIES ORAL) Take by mouth. - predniSONE (DELTASONE) 10 mg tablet Take 4 tablets for 3 days, then 2 tablets for 3 days, then 1 tablet for 3 days, then stop Problem List As Of Date: 11/13/2023 (None) Encounter Status:Closed by UZMA SIMMONS on 11/13/23 Normal [facility] B. burgdorferi IgG and IgM p pritesh (S)on 11-12-2023 B. burgdorferi IgG+IgM Qn (S) Negative Normal Negative [facility] Comment on above: Order Comment: Lisandro mark Type: BLOOD SPECIMENOrdering Facility: [facility] Address: [address] [place] [address] Result Comment: Rece nt infection with B. burgdorferi sensu lato cannot be excluded if the specimen collected within four weeks after the onset of signs and symptoms or within six weeks after a known tick exposure. Clinical and epidemiological correlation is required. Performed By: #### 3 4942-3 ####[facility] LABCLIA [id number] [address] [place] CBC panel Auto (Bld)on 11-11 Erythrocyte distribution width (RBC) [Ratio] 15.4 % High 11.5-15.0 [facility] Comment on above: Order Comment: Lisandro mark Type: BLOOD SPECIMENOrdering Facility: [facility] Address: [address] [place] [address] Performed By: #### 5 8410-2 ####[facility] LABCLIA [id number] [place] [address] [place] Hematocrit (Bld) [Volume fraction] 39.5 % Normal 36.0-46.0 [facility] Comment on above: Order Comment: Speci men Type: BLOOD SPECIMENOrdering Facility: [facility] Address: [address] [place] [address] Performed By: #### 5 8410-2 ####[facility] LABCL[facility] [id number] [place] [address] [place] Hemoglobin (Bld) [Mass/Vol] 12.4 g/dL Normal 11.5-15.5 [facility] Comment on above: Order Comment: Speci men Type: BLOOD SPECIMENOrdering Facility: [facility] Address: [address] [place] [address] Performed By: #### 5 8410-2 ####[facility] LABCLIA [id number] [place] [address] [place] MCH (RBC) [Entitic mass] 26.5 pg Normal 26.0-34.0 [facility] Comment on above: Order Comment: Speci men Type: BLOOD SPECIMENOrdering Facility: [facility] Address: [address] [place] [address] Performed By: #### 5 8410-2 ####[facility] LABCLIA [id number] [place] [address] [place] MCHC (RBC) [Mass/Vol] 31.4 g/dL Normal 30.5-36.0 [facility] Comment on above: Order Comment: Speci men Type: BLOOD SPECIMENOrdering Facility: [facility] Address: [address] [place] [address] Performed By: #### 5 8410-2 ####[facility] LABCLIA [id number] [place] [address] [place] MCV (RBC) [Entitic vol] 84.4 fL Normal 80.0-100.0 [facility] Comment on above: Order Comment: Speci men Type: BLOOD SPECIMENOrdering Facility: [facility] Address: [address] [place] [address] Performed By: #### 5 8410-2 ####[facility] [place] LABCLIA [id number] [facility] [place] [address] [place] [facility] Platelet mean volume (Bld) [Entitic vol] 9.8 fL Normal 9.0-12.7 [facility] Comment on above: Order Comment: Speci men Type: BLOOD SPECIMENOrdering Facility: [facility] Address: [address] [place] [address] Performed By: #### 5 8410-2 ####[facility] [place] LABCLIA [id number] [place] [address] [place] Platelets (Bld) [#/Vol] 311 10*3/uL Normal 150-400 [facility] Comment on above: Order Comment: Speci men Type: BLOOD SPECIMENOrdering Facility: [facility] Address: [address] [place] [address] Performed By: #### 5 8410-2 ####[facility] LABCLIA [id number] [place] [address] [facility] RBC (Bld) [#/Vol] 4.68 10*6/uL Normal 3.90-5.20 [facility] Comment on above: Order Comment: Speci men Type: BLOOD SPECIMENOrdering Facility: [facility] Address: [address] [place] [address] Performed By: #### 5 8410-2 ####[facility] LABCLIA [id number] [facility] [address] [place] WBC (Bld) [#/Vol] 4.94 10*3/uL Normal 3.70-11.00 [facility] Comment on above: Order Comment: Speci men Type: BLOOD SPECIMENOrdering Facility: [facility] Address: [address] [place] [address] Performed By: #### 5 8410-2 ####[facility] LABCLIA [id number] [place] [address] [facility] Comprehensive metabolic 2000 panelon 09-26-2024 Albumin [Mass/Vol] 4.2 g/dL Normal 3.9-4.9 [facility] Comment on above: Order Comment: Speci men Type: BLOOD SPECIMEN [facility] Address: [address] [place] [address] Performed By: #### 2 4323-8, 3016-3, 96398-5 #### [facility] CLIA [id number] [address] [place] [address] [facility] ALP [Catalytic activity/Vol] 72 U/L Normal 34-123 [facility] Comment on above: Order Comment: Speci men Type: BLOOD SPECIMEN [facility] Address: [address] [place] [address] Performed By: #### 2 4323-8, 3016-3, 79421-2 #### [facility] [place] [place] [facility] CLIA [id number] [address] [place], [place] [address] [place] [address] ALT With P-5'-P [Catalytic activity/Vol] 11 U/L Normal 7-38 [facility] Comment on above: Order Comment: Speci men Type: BLOOD SPECIMEN [facility] Address: [address] [place] [address] Performed By: #### 2 4323-8, 3016-3, 63670-0 #### [facility] [place] [place] [facility] CLIA [id number] [address] [place] [address] [facility] Anion gap [Moles/Vol] 9 mmol/L Normal 8-15 [facility] Comment on above: Order Comment: Speci men Type: BLOOD SPECIMEN [facility] Address: [address] [place] [address] Performed By: #### 2 4323-8, 3016-3, 11193-4 #### [facility] [place] [place] [facility] CLIA [id number] [address] [place] [address] [facility] AST With P-5'-P [Catalytic activity/Vol] 14 U/L Normal 13-35 [facility] Comment on above: Order Comment: Speci men Type: BLOOD SPECIMEN [facility] Address: [address] [place] [address] Performed By: #### 2 4323-8, 6-3, 15789-6 #### [facility] [facility] CLIA [id number] [address] [place] [address] [place] Bilirubin [Mass/Vol] 0.7 mg/dL Normal 0.2-1.3 [facility] Comment on above: Order Comment: Speci men Type: BLOOD SPECIMEN [facility] Address: [address] [place], [place] [address] Performed By: #### 2 4323-8, 3015-3, 67542-2 #### [facility] [place] [place] [facility] CLIA [id number] [address] [place] [address] [place] Calcium [Mass/Vol] 8.7 mg/dL Normal 8.5-10.2 [facility] Comment on above: Order Comment: Speci men Type: BLOOD SPECIMEN [facility] Address: [address] [place], [place] [address] Performed By: #### 2 4323-8, 3015-3, 05245-0 #### [facility] [facility] CLIA [id number] [address] [place] [address] [place] Chloride [Moles/Vol] 105 mmol/L Normal 98-107 [facility] Comment on above: Order Comment: Speci men Type: BLOOD SPECIMEN [facility] Address: [address] [place] [address] Performed By: #### 2 4323-8, 6-3, 78302-4 #### [facility] [place] [place] [facility] [facility] CLIA [id number] [address] [place] [address] [place] CO2 [Moles/Vol] 26 mmol/L Normal 22-30 [facility] Comment on above: Order Comment: Speci men Type: BLOOD SPECIMEN [facility] Address: [address] [place], [place] [address] Performed By: #### 2 4323-8, 3016-3, 15098-6 #### [facility] CLIA [id number] [address] [place] [address] [place] Creatinine [Mass/Vol] 0.72 mg/dL Normal 0.58-0.96 [facility] Comment on above: Order Comment: Lisandro mark Type: BLOOD SPECIMEN [facility] Address: [address] [place] [address] Performed By: #### 2 4323-8, 3016-3, 69789-0 #### [facility] CLIA [id number] [address] [place] [address] [facility] Creatinine and Glomerular filtration rate.predicted panel (S/P/Bld) 99 mL/min/1.73m??? Normal >=60 [facility] Comment on above: Order Comment: Lisandro mark Type: BLOOD SPECIMEN [facility] Address: [address] [place] [address] Result Comment: Jose Rafael mated Glomerular Filtration Rate (eGFR) is calculated using the 2020 CKD-EPI creatinine equation. This equation utilizes serum creatinine, sex, and age as parameters. The creatinine assay has traceable calibration to isotope dilution-mass spectrometry. Refer to KDIGO guidelines for clinical interpretation. In patients with unstable renal function, e.g. those with acute kidney injury, the eGFR may not accurately reflect actual GFR. Performed By: #### 2 4323-8, 6-3, 65457-8 #### [facility] CLIA [id number] [address] [place] [address] [place] Glucose [Mass/Vol] 101 mg/dL High 74-99 [facility] Comment on above: Order Comment: Lisandro mark Type: BLOOD SPECIMEN [facility] Address: [address] [place] [address] Result Comment: The [place] Diabetes Association (ADA) provides guidance for cutoff values for fasting glucose and random glucose. The ADA defines fasting as no caloric intake for at least 8 hours. Fasting plasma glucose results between 100 to 125 mg/dL indicate increased risk for diabetes (prediabetes). Fasting plasma glucose results greater than or equal to 126 mg/dL meet the criteria for diagnosis of diabetes. In the absence of unequivocal hyperglycemia, results should be confirmed by repeat testing. In a patient with classic symptoms of hyperglycemia or hyperglycemic crisis, random plasma glucose results greater than or equal to 200 mg/dL meet the criteria for diagnosis of diabetes. Reference: Standards of Medical Care in Diabetes 2016, [place] Diabetes Association. Diabetes Care. 2016.39(Suppl 1). Performed By: #### 2 4323-8, 6-3, 59687-6 #### [facility] [place] [place] [facility] CLIA [id number] [address] [place] [address] [place] Potassium [Moles/Vol] 4.2 mmol/L Normal 3.7-5.1 [facility] Comment on above: Order Comment: Lisandro mark Type: BLOOD SPECIMEN [facility] Address: [address] [place] [address] Performed By: #### 2 4323-8, 3, 05702-0 #### [facility] [place] [place] [facility] [facility] CLIA [id number] [address] [place] [address] [place] Protein [Mass/Vol] 6.9 g/dL Normal 6.3-8.0 [facility] Comment on above: Order Comment: Lisandro mark Type: BLOOD SPECIMEN [facility] Address: [address] [place] [address] Performed By: #### 2 4323-8, 3, 13569-4 #### [facility] [place] [place] [facility] CLIA [id number] [address] [place] [address] [place] Sodium [Moles/Vol] 140 mmol/L Normal 136-144 [facility] Comment on above: Order Comment: Lisandro mark Type: BLOOD SPECIMEN [facility] Address: [address] [place] [address] Performed By: #### 2 4323-8, 6-3, 65046-7 #### [facility] [place] [place] [facility] [facility] CLIA [id number] [address] [place] [address] [place] Urea nitrogen [Mass/Vol] 14 mg/dL Normal 7-21 [facility] Comment on above: Order Comment: Sharii men Type: BLOOD SPECIMEN [facility] Address: [address] [place] [address] Performed By: #### 2 4323-8, 3016-3, 68773-2 #### [facility] CLIA [id number] [address] [place] [address] [facility] [place] Lipid 1996 panelon 4 Cholesterol [Mass/Vol] 239 mg/dL High <200 [facility] Comment on above: Order Comment: Sharii men Type: BLOOD SPECIMEN [facility] Address: [address] [place] [address] Result Comment: <200 mg/dL, Desirable 200-239 mg/dL, Borderline high >239 mg/dL, High Performed By: #### 2 4323-8, 3016-3, 84879-9 #### [facility] CLIA [id number] [address] [place] [address] [place] Cholesterol in HDL [Mass/Vol] 65 mg/dL Normal >39 [facility] Comment on above: Order Comment: Lisandro deedee Type: BLOOD SPECIMEN [facility] Address: [address] [place] [address] Result Comment: 40-5 9 mg/dL, Acceptable >59 mg/dL, High: Negative risk factor for coronary heart disease <40 mg/dL, Low: Positive risk factor for coronary heart disease Performed By: #### 2 4323-8, 3016-3, 88473-6 #### [facility] CLIA [id number] [address] [place] [address] [place] Cholesterol in LDL [Mass/Vol] 148 mg/dL High <100 [facility] Comment on above: Order Comment: Lisandro mark Type: BLOOD SPECIMEN [facility] Address: [address] [place] [address] Result Comment: <100 mg/dL, Optimal 100-129 mg/dL, Near optimal/above optimal 130-159 mg/dL, Borderline high 160-189 mg/dL, High >189 mg/dL, Very high Secondary prevention optimal LDL Cholesterol levels are recommended to be < 70 mg/dL Performed By: #### 2 4323-8, 3016-3, 10998-7 #### [employer] [facility] CLIA [id number] [address] [place] [address] [place] Cholesterol in LDL/Cholesterol in HDL [Mass ratio] 2.28 {ratio} Normal <2.54 [facility] Comment on above: Order Comment: Lisandro mark Type: BLOOD SPECIMEN [facility] Address: [address] [place] [address] Result Comment: Refe rence: 1. National Cholesterol Education Program ATP III Guideline At-A-Glance Quick Desk Reference: National Heart, Lung, and Blood [place]. National Institutes of Health. 2001: NIH Publication No. 01-3305. 2. An International Atherosclerosis Society position paper: global recommendations for the management of dyslipidemia: executive summary, Atherosclerosis. 2014: 232(2):410-413. Performed By: #### 2 4323-8, 6-3, 55082-7 #### [employer] [facility] CLIA [id number] [address] [place] [address] [place] Cholesterol in VLDL [Mass/Vol] 26 mg/dL Normal <30 [facility] Comment on above: Order Comment: Lisandro amrk Type: BLOOD SPECIMEN [facility] Address: [address] [place] [address] Performed By: #### 2 4323-8, 6-3, 40332-2 #### [facility] CLIA [id number] [address] [place] [address] [place] Cholesterol non HDL [Mass/Vol] 174 mg/dL High <130 [facility] Comment on above: Order Comment: Lisandro mark Type: BLOOD SPECIMEN [facility] Address: [address] [place] [address] Result Comment: <130 mg/dL, Optimal 130-159 mg/dL, Near optimal/above optimal 160-189 mg/dL, Borderline high 190-219 mg/dL, High >219 mg/dL, Very high Secondary prevention optimal non HDL Cholesterol levels are recommended to be <100 mg/dL Performed By: #### 2 4323-8, 3016-3, 28695-1 #### [facility] [place] [place] [facility] CLIA [id number] [address] [place] [address] [facility] [place] Cholesterol.total/Cho lesterol in HDL [Mass ratio] 3.68 {ratio} Normal <5.10 [facility] Comment on above: Order Comment: Speci men Type: BLOOD SPECIMEN [facility] Address: [address] [place] [address] Performed By: #### 2 4323-8, 6-3, 50085-2 #### [facility] CLIA [id number] [address] [place] [address] [facility] FASTING TIME 12 hrs Normal [facility] Comment on above: Order Comment: Speci men Type: BLOOD SPECIMEN [facility] Address: [address] [place] [address] Performed By: #### 2 4323-8, 6-3, 51712-7 #### [facility] CLIA [id number] [address] [place] [address] [facility] Triglyceride [Mass/Vol] 128 mg/dL Normal <150 [facility] Comment on above: Order Comment: Speci men Type: BLOOD SPECIMEN [facility] Address: [address] [place] [address] Result Comment: <150 mg/dL, Normal 150-199 mg/dL, Borderline high 200-499 mg/dL, High >499 mg/dL, Very high Performed By: #### 2 4323-8, 3016-3, 91219-4 #### [facility] [place] [place] [facility] CLIA [id number] [address] [place] [address] [place] TSH SerPl-aCncon 11-12-2023 TSH Qn 3.980 m[IU]/L Normal 0.270-4.200 [facility] Comment on above: Order Comment: Speci men Type: BLOOD SPECIMEN [facility] Address: [address], [place] [address] Performed By: #### 2 4323-8, 3016-3, 46977-6 #### [facility] CLIA [id number] [address] [place] [address] [address] [facility] CNOVon 11-10-2023 CNOV Office Visit (AGFAMPLE) BETHANY BOYD ([id number]) 1970 F Date Time Provider Department 11/10/23 9:20 AM ADIN PARADA During your visit today, we recorded the following information about you: Temperature Pulse Blood pressure Weight 98.2 degrees 74/minute 128/72 94.3 kg Height 1.626 m Adin Parada, COMIC BOOK WRITER.PUNCH MACHINE OPERATOR 11/10/2023 9:57 PM Signed Subjective Bethany Boyd is a 53 year old female here today for well woman exam with Pap. I reviewed past medical, surgical, social, and family histories today and updated chart. Allergies, chronic medications, and supplements were also reviewed. HPI Concern(s) today include: Left eyelid still drooping and swollen. Took coarse of steriods and no change. She has eye appointment tomorrow in [place]. Bug bite to right arm prior to the left eye symptom. She has history of lyme disease with [place] palsy back in 2020 T4 (miscarriage) L4 MENSTRUAL HISTORY LMP: August 2023 Becoming more irregular No hot flashes or sweats Flow heavy with clots first few days (since last child 2007), Duration 6 days, Menarche 12 Patient on HRT: no Ever used HRT: no SEXUAL HISTORY: sexually active CONTRACEPTION: tubal ligation Hx of abnormal pap: no VAGINAL SYMPTOMS: Denies abnormal discharge, itching, pain. Denies pain with sex. BREAST: Denies lumps, nipple discharge, and pain. Last Mammogram - has been a while URINARY SYMPTOMS: Denies dysuria, urgency, frequency, hematuria. Gets up in the night maybe 1-2 times Do you experience urinary incontinence? No Colorectal cancer screening - has not had done PAST MEDICAL HISTORY Diagnosis Date Lea's palsy 2020 Tick bite 2020 PAST SURGICAL HISTORY Procedure Laterality Date DANDC, DIAG AND/OR THERAPEUTIC Miscarriage KNEE SURGERY HX Left Torn Meniscus Repair ALLERGIES Patient has no known allergies. MEDICATIONS multivit-minerals/fol ic acid (MULTIVITAMIN GUMMIES ORAL) Take by mouth. predniSONE (DELTASONE) 10 mg tablet Take 4 tablets for 3 days, then 2 tablets for 3 days, then 1 tablet for 3 days, then stop (Patient not taking: Reported on 11/10/2023) FAMILY HISTORY Problem Relation Age of Onset Liver Cancer Mother other (Anemia) Mother Heart Mother Heart Father Heart Attack Father No Known Problems Sister Asthma Brother other (tumor on ovary) Daughter Asthma Daughter ADD/ADHD Son Social History Tobacco Use Smoking status: Never Smokeless tobacco: Never Vaping Use Vaping status: Never Used Substance Use Topics Alcohol use: Yes Comment: social Drug use: Never Review of Systems Constitutional: Negative for appetite change, chills, fatigue, fever and unexpected weight change. HENT: Negative for congestion, ear pain, rhinorrhea and sore throat. Eyes: Negative for pain, discharge, itching and visual disturbance. Respiratory: Negative for cough, shortness of breath and wheezing. Cardiovascular: Negative for chest pain, palpitations and leg swelling. Gastrointestinal: Negative for abdominal pain, constipation, diarrhea, nausea and vomiting. Genitourinary: Negative for difficulty urinating. Musculoskeletal: Negative for arthralgias. Skin: Negative for rash. Neurological: Negative for dizziness, tremors, weakness and headaches. Psychiatric/Behaviora l: Negative for dysphoric mood and sleep disturbance. The patient is not nervous/anxious. Overall okay Objective BP 128/72 Pulse 74 Temp 98.2 Ht 5' 4 (1.63m) Wt 208 lb (94.3kg) SpO2 97% BMI 35.69 kg/(m2). Physical Exam Exam conducted with a compensation adjuster present (JORDANA Simmons present). Constitutional: General: She is not in acute distress. Appearance: Normal appearance. She is well-developed. HENT: Head: Normocephalic and atraumatic. Right Ear: Hearing, tympanic membrane, ear canal and external ear normal. No drainage. Left Ear: Hearing, tympanic membrane, ear canal and external ear normal. No drainage. Nose: Nose normal. Mouth/Throat: Pharynx: Uvula midline. Eyes: General: Right eye: No discharge. Left eye: No discharge. Extraocular Movements: Extraocular movements intact. Conjunctiva/sclera: Conjunctivae normal. Pupils: Pupils are equal, round, and reactive to light. Comments: Left upper eyelid appears slightly swollen Neck: Thyroid: No thyroid mass or thyromegaly. Vascular: No carotid bruit. Cardiovascular: Rate and Rhythm: Normal rate and regular rhythm. Pulses: Radial pulses are 2+ on the right side and 2+ on the left side. Heart sounds: Normal heart sounds. No murmur heard. Pulmonary: Effort: Pulmonary effort is normal. Breath sounds: No wheezing, rhonchi or rales. Chest: Breasts: Breasts are symmetrical. Right: No inverted nipple, mass, nipple discharge, skin change or tenderness. Left: Skin change present. No inverted nipple, mass, n (more content not included)... Normal [facility] HIGH RISK HUMAN PAPILLOMA JOSE MARTIN (HPV), PCR FOR DETECTION AND GENOTYPINGon 11-10-2023 HPV 16 Ag Ql (Unsp spec) Not detected Normal Not detected [facility] Comment on above: Order Comment: Speci men Type: FLUID SPECIMENOrdering Facility: [facility] Address: [address] [place] [address] Performed By: #### L [id number] ####[facility] [place] LAB[facility]ATORYCLIA [id number] [place] [address] [place]#### HPVHRT ####[facility] LABCLIA [id number] [facility] [id number] [address] [place] HPV 18 Ag Ql (Unsp spec) Not detected Normal Not detected [facility] Comment on above: Order Comment: Speci men Type: FLUID SPECIMENOrdering Facility: [facility] Address: [address] [place] [address] Performed By: #### L [id number] ####[facility] [facility]ATORYCLIA [id number] [address] [place]#### HPVHRT ####[facility] LABCLIA [id number] [place] [address] [place] HPV 31+33+35+39+45+51+52+ 56+58+59+66+68 DNA MARIA ISABEL+probe Ql (Cvx) Not detected Normal Not detected [facility] Comment on above: Order Comment: Speci men Type: FLUID SPECIMENOrdering Facility: [facility] Address: [address] [place] [address] Result Comment: High Risk HPV Other Type includes HPV types 31, 33, 35, 39, 45, 51, 52, 56, 58, 59, 66 and 68. Performed By: #### L [id number] ####[facility] [facility]ATORYCLIA [id number] [place] [address] [place]#### HPVHRT ####[facility] LABCLIA [id number] [place] [address] [place] PAP TESTon 11-10-2023 ADEQUACY Normal [facility] Comment on above: Order Comment: Speci men Type: FLUID SPECIMENOrdering Facility: [facility] Address: [address] [place] [address] Result Comment: Sati sfactory for interpretation. Transformation zone present Performed By: #### L [id number] ####[facility] [facility]ATORYCLIA [id number] [place] [address] [place]#### HPVHRT ####[facility] LABCLIA [id number] [place] [address] [place] CASE REPORT Normal [facility] Comment on above: Order Comment: Speci men Type: FLUID SPECIMENOrdering Facility: [facility] Address: [address] [place] [address] Result Comment: Gyne cologic Cytology Report Case: [id number] Authorizing Provider: Adin Parada APRN.PUNCH MACHINE OPERATOR Collected: 11/10/2023 10:01 AM Ordering Location: [facility] Received: 11/10/2023 12:04 PM First Screen: Mary Melo, CT, [facility] Rescreen: Gris Langford CT, [facility] Specimen: Pap Test, ThinPrep, Cervix Performed By: #### L [id number] ####[facility] [facility]ATORYCLIA [id number] [place] [address] [place]#### HPVHRT ####[facility] LABCLIA [id number] [place] [address] [place] CLINICAL HISTORY, CYTOLOGY, DIRECTOR PRODUCT DEVELOPMENT Routine Exam Normal [facility] Comment on above: Order Comment: Speci men Type: FLUID SPECIMENOrdering Facility: [facility] Address: [address] [place] [address] Performed By: #### L [id number] ####[facility] LAB[facility]ATORYCLIA [id number] [place] [address] [place]#### HPVHRT ####[facility] LABCLIA [id number] [place] [address] [place] FINAL PERFORMING LAB Normal [facility] Comment on above: Order Comment: Speci men Type: FLUID SPECIMENOrdering Facility: [facility] Address: [address] [place] [address] Result Comment: Tech nical component, manager bakery screening performed at [facility], [address] [place] [address] CLIA# [id number] Diagnostic interpretation performed at [facility], [address] [place] [address] CLIA# [id number] Associate Professor Of Sociology: Heladio Gonzalez M.D. Performed By: #### L [id number] ####[facility] [place] [facility]ATORYCLIA [id number] [place] [address] [place]#### HPVHRT ####[facility] LABCLIA [id number] [place] [address] [place] HPV REFLEX Yes HPV Normal [facility] Comment on above: Order Comment: Speci men Type: FLUID SPECIMENOrdering Facility: [facility] Address: [address] [place] [address] Performed By: #### L [id number] ####[facility] [facility]ATORYCLIA [id number] [place] [address] [place]#### HPVHRT ####[facility] LABCLIA [id number] [place] [address] [place] INTERPRETATION, CYTOLOGY, DIRECTOR PRODUCT DEVELOPMENT Normal [facility] Comment on above: Order Comment: Speci men Type: FLUID SPECIMENOrdering Facility: [facility] Address: [address] [place] [address] Result Comment: Nega tive for intraepithelial lesion or malignancy. Performed By: #### L [id number] ####[facility] [place] [facility]ATORYCLIA [id number] [place] [address] [place]#### HPVHRT ####[facility] LABCLIA [id number] [place] [address] [place] LMP 08/17/2023 Normal [facility] Comment on above: Order Comment: Speci men Type: FLUID SPECIMENOrdering Facility: [facility] Address: [address] [place] [address] Performed By: #### L [id number] ####[facility] [place] [facility]ATORYCLIA [id number] [place] [address] [place]#### HPVHRT ####[facility] LABCLIA [id number] [place] [address] [place] PAP DISCLAIMER COMMENT The Pap Smear is a screening test for cervical cancer. False negative results occur with all screening tests, emphasizing the need for rescreening at recommended intervals, and clinical correlation. Normal [facility] Comment on above: Order Comment: Speci men Type: FLUID SPECIMENOrdering Facility: [facility] Address: [address] [place] [address] Performed By: #### L [id number] ####[facility]ITAL[facility]IA [id number] [place] [address] [place]#### HPVHRT ####[facility] LABIA [id number] [place] [address] [place] PAP BEHAVIORAL CONSULTANT COMMENT This specimen has been analyzed by the ThinPrep Imaging System, an automated imaging and review system, which assists the laboratory in evaluating cells on ThinPrep Pap tests. Following automated imaging, selected mckeon from every slide are reviewed by a manager bakery. Normal [facility] Comment on above: Order Comment: Speci men Type: FLUID SPECIMENOrdering Facility: [facility] Address: [address] [place] [address] Performed By: #### L [id number] ####[facility] HE[facility] SERVICESIA [id number] [place] [address] [place]#### HPVHRT ####[facility] LABIA [id number] [place] [address] [place] XR KNEE GENERAL 4V AP BOTH/P A BOTH/LAT/MERC LEFTon 08-27-2021 [facility] XR Knee - left 4 Viewson IMPRESSION: Small joint effusion Degenerative arthritis Cotton Factor: SHON Transcribe Date/Time: Aug 27 2021 4:04P Dictated by : NEIL MAN MD This examination was interpreted and the report reviewed and electronically signed by: NEIL MAN MD on Aug 27 2021 4:09PM EST WYATT_DO_NOT_USE _DIVISION OF RADIOLOGY * * *Final Report* * * DATE OF EXAM: Aug 27 2021 3:35PM WOX [id number] - XR KNEE 4V AP/PA BOTH+LAT/FERCHO LT / PROCEDURE REASON: Acute pain of left knee * * * * Physician Interpretation * * * * TECHNIQUE: XR KNEE 4V AP/PA BOTH+LAT/FERCHO LT EXAM DATE: 08/27/2021 3:35 PM COMPARISON STUDIES: None CLINICAL HISTORY: Acute pain of left knee RESULT: Small suprapatellar joint effusion. Severe medial compartment joint space narrowing. Tricompartmental osteophytes. Corticated ossific focus by the tibial spines, could reflect small joint body. Lateral patellar tilt and mild subluxation with moderate lateral patellofemoral joint space narrowing. Right knee shows fhmr-hf-achjtxcm medial compartment narrowing, tricompartmental osteophytes, severe lateral patellofemoral joint space narrowing with lateral patellar tilt and subluxation. ZZZ_DO_NOT_USE _DIVISION OF RADIOLOGY Provider, [facility] - 08/27/2021 * * *Final Report* * * DATE OF EXAM: Aug 27 2021 3:35PM WOX [id number] - XR KNEE 4V AP/PA BOTH+LAT/FERCHO LT / PROCEDURE REASON: Acute pain of left knee * * * * Physician Interpretation * * * * TECHNIQUE: XR KNEE 4V AP/PA BOTH+LAT/FERCHO LT EXAM DATE: 08/27/2021 3:35 PM COMPARISON STUDIES: None CLINICAL HISTORY: Acute pain of left knee RESULT: Small suprapatellar joint effusion. Severe medial compartment joint space narrowing. Tricompartmental osteophytes. Corticated ossific focus by the tibial spines, could reflect small joint body. Lateral patellar tilt and mild subluxation with moderate lateral patellofemoral joint space narrowing. Right knee shows fgra-uy-gwrcfkwb medial compartment narrowing, tricompartmental osteophytes, severe lateral patellofemoral joint space narrowing with lateral patellar tilt and subluxation. IMPRESSION IMPRESSION: Small joint effusion Degenerative arthritis Cotton Factor: SHON Transcribe Date/Time: Aug 27 2021 4:04P Dictated by : NEIL MAN MD This examination was interpreted and the report reviewed and electronically signed by: NEIL MAN MD on Aug 27 2021 4:09PM EST [facility] Radiology Study observation (narrative) [facility] XR Knee - left 4 ViewsOrdere d By: [facility] Provider on 08-27-2021 [facility] Otheron 11-26-2005 CONVERTED ELECTRONIC SIGNATURE HELADIO GONZALEZ M.D., PATHOLOGIST (Electronic signature on file) Final Signed Out: 11/26/2005 13:08 [facility] CONVERTED FINAL DIAGNOSIS UTERINE CONTENTS, EXCISION - 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 SECRETORY ENDOMETRIUM. [facility] CONVERTED ORDERING PROVIDER Ordering Provider: NOHEMI DELCID [facility] Vital Signs Date Time Vital Sign Value Performing Clinician Facility 10-17-2024 17:00-0400 Diastolic blood pressure 93 mm[Hg] Adin Trifederico COMIC BOOK WRITER-PUNCH MACHINE OPERATOR Work Phone: [facility] 10-17-2024 17:00-0400 Heart rate 76 /min Adin Trill COMIC BOOK WRITER-PUNCH MACHINE OPERATOR Work Phone: [facility] 10-17-2024 17:00-0400 Respiratory rate 16 /min Adin Trill COMIC BOOK WRITER-PUNCH MACHINE OPERATOR Work Phone: [facility] 10-17-2024 17:00-0400 SaO2% (BldA) [Mass fraction] 98 % Adin Trill COMIC BOOK WRITER-PUNCH MACHINE OPERATOR Work Phone: [facility] 10-17-2024 17:00-0400 Systolic blood pressure 166 mm[Hg] Adin Trill COMIC BOOK WRITER-PUNCH MACHINE OPERATOR Work Phone: [facility] 10-17-2024 15:48-0400 Body height 162.6 cm Adin Trill COMIC BOOK WRITER-PUNCH MACHINE OPERATOR Work Phone: [facility] 10-17-2024 15:48-0400 Body mass index (BMI) [Ratio] 35.7 kg/m2 Adin Trill COMIC BOOK WRITER-PUNCH MACHINE OPERATOR Work Phone: [facility] 10-17-2024 15:48-0400 Body temperature 98.71 [degF] Adin Trill COMIC BOOK WRITER-PUNCH MACHINE OPERATOR Work Phone: [facility] 10-17-2024 15:48-0400 Body weight 94.35 kg Adin Trill COMIC BOOK WRITER-PUNCH MACHINE OPERATOR Work Phone: [facility] 11-10-2023 09:22-0400 Body height 162.6 cm Adin Trill COMIC BOOK WRITER.PUNCH MACHINE OPERATOR Work Phone: [facility] 11-10-2023 09:22-0400 Body mass index (BMI) [Ratio] 35.7 kg/m2 Adin Trill COMIC BOOK WRITER.PUNCH MACHINE OPERATOR Work Phone: [facility] 11-10-2023 09:22-0400 Body temperature 98.2 [degF] Adin Trill COMIC BOOK WRITER.PUNCH MACHINE OPERATOR Work Phone: [facility] 11-10-2023 09:22-0400 Body weight 94.35 kg Adin Trill COMIC BOOK WRITER.PUNCH MACHINE OPERATOR Work Phone: [facility] 11-10-2023 09:22-0400 Diastolic blood pressure 72 mm[Hg] Adin Trill COMIC BOOK WRITER.PUNCH MACHINE OPERATOR Work Phone: [facility] 11-10-2023 09:22-0400 Heart rate 74 /min Adin Parada COMIC BOOK WRITER.PUNCH MACHINE OPERATOR Work Phone: [facility] 11-10-2023 09:22-0400 SaO2% (BldA) [Mass fraction] 97 % Adin Trill COMIC BOOK WRITER.PUNCH MACHINE OPERATOR Work Phone: [facility] 11-10-2023 09:22-0400 Systolic blood pressure 128 mm[Hg] Adin Trill COMIC BOOK WRITER.PUNCH MACHINE OPERATOR Work Phone: [facility] 10-13-2023 09:18-0400 Body height 162.6 cm Adin Trill COMIC BOOK WRITER.PUNCH MACHINE OPERATOR Work Phone: [facility] 10-13-2023 09:18-0400 Body mass index (BMI) [Ratio] 35.02 kg/m2 Adin Trill COMIC BOOK WRITER.PUNCH MACHINE OPERATOR Work Phone: [facility] 10-13-2023 09:18-0400 Body temperature 97.81 [degF] Adin Trill COMIC BOOK WRITER.PUNCH MACHINE OPERATOR Work Phone: [facility] 10-13-2023 09:18-0400 Body weight 92.53 kg Adin Trill COMIC BOOK WRITER.PUNCH MACHINE OPERATOR Work Phone: [facility] 10-13-2023 09:18-0400 Diastolic blood pressure 78 mm[Hg] Adin Trill COMIC BOOK WRITER.PUNCH MACHINE OPERATOR Work Phone: [facility] 10-13-2023 09:18-0400 Heart rate 61 /min Adin Trill COMIC BOOK WRITER.PUNCH MACHINE OPERATOR Work Phone: [facility] 10-13-2023 09:18-0400 Respiratory rate 16 /min Adin Trill COMIC BOOK WRITER.PUNCH MACHINE OPERATOR Work Phone: [facility] 10-13-2023 09:18-0400 SaO2% (BldA) [Mass fraction] 99 % Adin Trill COMIC BOOK WRITER.PUNCH MACHINE OPERATOR Work Phone: [facility] 10-13-2023 09:18-0400 Systolic blood pressure 124 mm[Hg] Adin Trill COMIC BOOK WRITER.PUNCH MACHINE OPERATOR Work Phone: [facility] 08-27-2021 15:05-0400 Body temperature 98.71 [degF] Sabine Waller COMIC BOOK WRITER.PUNCH MACHINE OPERATOR Work Phone: [facility] 08-27-2021 15:05-0400 Body weight 92.63 kg Sabine Waller COMIC BOOK WRITER.PUNCH MACHINE OPERATOR Work Phone: [facility] 08-27-2021 15:05-0400 Diastolic blood pressure 80 mm[Hg] Sabine Waller COMIC BOOK WRITER.PUNCH MACHINE OPERATOR Work Phone: [facility] 08-27-2021 15:05-0400 Heart rate 72 /min Sabine Waller COMIC BOOK WRITER.PUNCH MACHINE OPERATOR Work Phone: [facility] 08-27-2021 15:05-0400 Respiratory rate 18 /min Sabine Waller COMIC BOOK WRITER.PUNCH MACHINE OPERATOR Work Phone: [facility] 08-27-2021 15:05-0400 SaO2% (BldA) [Mass fraction] 98 % Sabine Waller COMIC BOOK WRITER.PUNCH MACHINE OPERATOR Work Phone: [facility] 08-27-2021 15:05-0400 Systolic blood pressure 122 mm[Hg] Sabine Waller COMIC BOOK WRITER.PUNCH MACHINE OPERATOR Work Phone: [facility] Encounters Encounter Date Encounter Type Care Provider Facility Start: 10-24-2024 [facility] Start: 10-21-2024 End: 10-21-2024 ambulatory Adin Parada COMIC BOOK WRITER.PUNCH MACHINE OPERATOR Work Phone: [facility] Start: 10-21-2024 End: 10-21-2024 Follow-up encounter Adin Parada APRN.PUNCH MACHINE OPERATOR Work Phone: [facility] Comment on above: ED Follow-up ([facility] 10/17/2024) Start: 10-21-2024 Encounter for other preprocedural examination Clemente Moseley [facility] Start: 10-17-2024 End: 10-17-2024 Emergency department patient visit ADIN PARADA [facility] Comment on above: Fall, initial encoun ter (Primary Dx); Hematoma of scalp, initial encounter; Secondary hypertension Start: 10-05-2024 End: 10-05-[address] Clemente Moseley MD Work Phone: -Cat Scan [facility] Start: 10-05-2024 End: 10-05-[address] Clemente Moseley MD -Cat Scan [facility] Work Phone: Start: 10-05-2024 End: 10-05-2024 ambulatory Clemente Moseley Facility:[facility] Start: 12-15-2023 End: 12-15-2023 Telephone encounter Adin Parada APRN.PUNCH MACHINE OPERATOR Work Phone: [facility] Comment on above: Results Start: 12-15-2023 ambulatory ADIN PARADA Facilit y:[id number] Start: 12-15-2023 End: 12-15-2023 Subsequent hospital visit by physician [facility] Comment on above: Axillary lymphadenop athy [R59.0] Start: 11-25-2023 End: 11-26-2023 Telephone encounter Adin Parada APRN.PUNCH MACHINE OPERATOR Work Phone: [facility] Comment on above: Results (Mammogram) Start: 11-24-2023 ambulatory ADIN PARADA Facilit y:[facility] Start: 11-24-2023 End: 11-24-2023 Subsequent hospital visit by physician Mammo/Bone Density [facility] MAMMO BONE D [facility] Comment on above: Encounter for screen ing mammogram for breast cancer [Z12.31] Start: 11-13-2023 End: 11-13-2023 Telephone encounter Adin Parada APRN.CNP Work Phone: [facility] Comment on above: Results (Pap, Labs) Start: 11-12-2023 End: 11-12-2023 [facility]ulatory [facility] Start: 11-11-2023 End: 11-11-2023 ambulatory ADIN PARADA Facility:[facility] Start: 11-11-2023 End: 11-11-2023 Office outpatient new 30 minutes Charles Alvarado MD Work Phone: Ophthalmology Comment on above: Brow ptosis, left (P rimary Dx); Dermatochalasis of left upper eyelid Start: 11-10-2023 End: 11-10-2023 Patient encounter procedure Adin Parada APRN.PUNCH MACHINE OPERATOR Work Phone: [facility] Comment on above: Well adult exam (Christy uzma Dx); Encounter for gynecological examination without abnormal finding; Screening for cervical cancer; Encounter for screening mammogram for breast cancer; Encounter for immunization; Bug bite, subsequent encounter; Neoplasm of uncertain behavior of skin; Change of skin of breast; Screening for diabetes mellitus; Screening for lipid disorders; Thyroid disorder screening; Screening for deficiency anemia; Encounter for colorectal cancer screening Start: 11-10-2023 End: 11-10-2023 Patient encounter status Adin Parada APRN.CNP Work Phone: [facility] Work Phone: Start: 11-10-2023 End: 11-10-2023 ambulatory [facility] Start: 11-10-2023 Encounter for genera l adult medical examination without abnormal findings ADIN PARADA [facility] Start: 10-13-2023 End: 10-13-2023 Patient encounter procedure Adin Parada COMIC BOOK WRITER.PUNCH MACHINE OPERATOR Work Phone: [facility] Comment on above: Ptosis of left eyeli d (Primary Dx); Swelling of left eyelid; Floaters, left Start: 09-06-2021 Telephone encounter Harley Allan Rukhsana lanemeghan DO Work Phone: X[facility] IMAGING Comment on above: disc request Start: 08-27-2021 End: 08-27-2021 Subsequent hospital visit by physician Xr [facility] Work Phone: Radiology Comment on above: Acute pain of left k nee [M25.562] Start: 08-27-2021 End: 08-27-2021 Patient encounter procedure Sabine Waller GEOVANNI.PUNCH MACHINE OPERATOR [facility] Comment on above: Acute pain of left k nee (Primary Dx) Start: 11-06-2014 End: 11-07-2014 Ambulatory JOSIANE BAIN Facility:[facility] Start: 11-24-2005 End: 11-24-2005 Patient encounter procedure Nohemi Delcid Work Phone: [facility] Start: 11-24-2005 Results Only Nohemi Delcid Work Phone: [facility] Procedures Date Procedure Procedure Detail Performing Clinician Start: 10-17-2024 Urinalysis microscop ic panel - Urine Qualitative by Automated Tj Lezama PA-C Work Phone: Start: 10-17-2024 Urnls dip stick/tabl et reagent auto microscopy Tj Lezama PA-C Work Phone: Start: 10-17-2024 Ct head/brain w/o co ntrast material Tj Lezama PA-C Work Phone: Start: 10-17-2024 Comprehensive metabo lic panel Tj BUCIOC Work Phone: Start: 10-05-2024 MRI of lower extremity Dr. Clemente Moseley MD Work Phone: Start: 12-15-2023 Us lmtd joint/oth no nvasc xtr strux r-t w/img Adin Parada COMIC BOOK WRITER.PUNCH MACHINE OPERATOR Work Phone: Start: 11-24-2023 Screening digital br east tomosynthesis bi Adin Parada COMIC BOOK WRITER.LEANNA Work Phone: Start: 11-12-2023 Lipid 1996 panel - S gissel or Plasma Xr Cam Work Phone: Start: 08-27-2021 Radiologic exam knee complete 4/more views Sabine Waller COMIC BOOK WRITER.LEANNA Work Phone: Start: 11-24-2005 CONVERTED SURGICAL PATHOLOGY Nohemi Delcid Work Phone: Plan of Treatment Date Care Activity Detail Author Start: 11-11-2028 Lipid panel Lipid Screening [facility] Start: 11-09-2028 Screening for malignant neoplasm of cervix Cervical Cancer Screening [facility] Start: 10-18-2027 Diabetes Screening [facility] [facility] Start: 11-11-2026 Diabetes Screening Diabetes Screenin [facility] Start: 11-23-2024 Screening for malignant neoplasm of breast Mammogram Screening [facility] Start: 10-31-2024 End: 10-31-2024 Patient encounter procedure 10/31/2024 1:00 PM EDT Office Visit [address] [address] Patricia Gutiérrez COMIC BOOK WRITER.PUNCH MACHINE OPERATOR [address] [place] [address] Surgery clearance [facility] Comment on above: Surgery clearance Start: 10-17-2024 COVID-19 Vaccine ( season) COVID-19 Vaccine ( season) [facility] Start: 10-17-2024 Influenza vaccination Influenza Vacc ine (#1) [facility] Start: 12-15-2023 End: 12-15-2023 Patient encounter procedure 12/15/2023 9:00 AM EDT Appointment [facility] [address] [place] [address] scheduled w/pt [facility] Comment on above: scheduled w/pt Start: 11-24-2023 End: 11-24-2023 Patient encounter procedure 11/24/2023 8:30 AM EDT Appointment [facility] [address] [place] [address] MAMM SCREENING W/ADAM [facility] Comment on above: MAMM SCREENING W/ARDEN O Start: 11-11-2023 End: 11-11-2023 Patient encounter procedure 11/11/2023 10:00 AM EDT Office Visit [facility] [address] [place] [address] Charles Alvarado MD [address] [place] [id number] droopy eyelids Ophthalmology Comment on above: droopy eyelids Start: 11-10-2023 End: 02-09-2024 Borrelia burgdorferi IgG and IgM panel - Serum LYME AB LATE >30 DAYS SYMPTOMS Lab Routine Bug bite, subsequent encounter Expected: 11/10/2023, Expires: 02/09/2024 [facility] Comment on above: Expected: 11/10/2023 , Expires: 02/09/2024 Start: 11-10-2023 End: 06-07-2024 CBC panel - Blood by Automated count COMPLETE BLOOD COUNT Lab Routine Screening for deficiency anemia Expected: 11/10/2023, Expires: 06/07/2024 [facility] Comment on above: Expected: 11/10/2023 , Expires: 06/07/2024 Start: 11-10-2023 End: 06-07-2024 Comprehensive metabolic 2000 panel - Serum or Plasma COMPREHENSIVE METABOLIC PANEL Lab Routine Screening for diabetes mellitus Expected: 11/10/2023, Expires: 06/07/2024 [facility] Comment on above: Expected: 11/10/2023 , Expires: 06/07/2024 Start: 11-10-2023 End: 02-09-2024 Lipid 1996 panel - Serum or Plasma LIPID PANEL BASIC Lab Routine Screening for lipid disorders Expected: 11/10/2023, Expires: 02/09/2024 [facility] Comment on above: Expected: 11/10/2023 , Expires: 02/09/2024 Start: 11-10-2023 End: 06-07-2024 Thyrotropin [Units/volume] in Serum or Plasma THYROID STIMULATING HORMONE Lab Routine Thyroid disorder screening Expected: 11/10/2023, Expires: 06/07/2024 [facility] Comment on above: Expected: 11/10/2023 , Expires: 06/07/2024 Start: 11-10-2023 End: 11-10-2023 Patient encounter procedure 11/10/2023 9:20 AM EDT Office Visit [facility] [address] [place], [place] [id number] Adin Parada APRN.[facility] [address] [place] [address] for well adult with Pap. [facility] Comment on above: for well adult with Pap. Start: 10-18-2023 Covid-19 Vaccine ( season) Covid-19 Vaccine ( season) [facility] Start: 10-18-2023 Influenza vaccination Influenza Vacc ine (#1) [facility] Start: 10-17-2022 Covid-19 Vaccine ( season) Covid-19 Vaccine ( season) [facility] Start: 10-17-2021 Influenza vaccination INFLUENZA (#1) [facility] Start: 06-25-2020 COVID-19 VACCINE (2 - Moderna series) COVID-19 VACCINE (2 - Moderna series) [facility] Start: 10-18-2019 Influenza vaccination INFLUENZA (#1) [facility] Start: 2018 Pneumococcal vaccination Pneumococcal Vaccine (1 of 1 - PCV) [facility] Start: 2018 Pneumococcal Vaccine : 50+ (1 of 1 - PCV) Pneumococcal Vaccine: 50+ (1 of 1 - PCV) [facility] Start: 2018 SHINGRIX VACCINE (1 of 2) SHINGRIX VACCINE (1 of 2) [facility] Start: 2018 Tuberculosis screening COLOREC LILLIAN CANCER SCREENING,SEE MODIFIER [facility] Start: 2018 Zoster Vaccines (1 o f 2) Zoster Vaccines (1 of 2) [facility] Start: 2013 COLOGUARD (FIT-DNA) COLOGUARD (FIT-D NA) [facility] Start: 2013 Colonoscopy COLONOSCOPY [facility] Start: 2013 COLORECTAL CANCER SCREENING COLORECTAL CANCER SCREENING [facility] Start: [address] COLONOGRAPHY [facility] Start: 2013 DIABET[facility]EN [facility] Start: 2013 Diabetes Screening Diabetes Screenin g [facility] Start: 2013 FECAL OCCULT BLOOD FECAL OCCULT BLOO D [facility] Start: 2013 Lipid panel Lipid Screening [facility] Start: 2013 LIPID SCREEN LIPID SCREEN [facility] Start: 2013 Screening for malignant neoplasm of colon [facility] Start: 2013 SIGMOIDOSCOPY SIGMOIDOSCOPY [facility] Start: 2008 Mammography MAMMOGRAM [facility] Start: 2008 Screening for malignant neoplasm of breast [facility] Start: 1998 HPV TESTING HPV TESTING [facility] Start: 1990 DTaP/Tdap/Td Vaccine s (1 - Tdap) DTaP/Tdap/Td Vaccines (1 - Tdap) [facility] Start: 1989 PAP TESTING PAP TESTING [facility] Start: 1989 Screening for malignant neoplasm of cervix [facility] Start: 1987 Hepatitis B Vaccine (1 of 3 - 19+ 3-dose series) Hepatitis B Vaccine (1 of 3 - 19+ 3-dose series) [facility] Start: 1987 Hepatitis B Vaccines (1 of 3 - 19+ 3-dose series) Hepatitis B Vaccines (1 of 3 - 19+ 3-dose series) [facility] Start: 1987 Urine microalbumin profile [facility] Start: 1986 Anxiety Screening Anxiety Screening [facility] Start: 1986 Depression Screening Depression Scre ening [facility] Start: 1986 HEPATITIS C SCREENING HEPATITIS C [facility] Start: 1986 Hepatitis C screening Hepatitis C [facility] Start: 1986 HIV SCREENING HIV SCREENING [facility] Start: 1986 HIV screening HIV Screening [facility] Start: 1980 Adult depression screening assessment DEPRESSION SCREENING [facility] Start: 1969 MMR Vaccines (1 of 1 - Standard series) MMR Vaccines (1 of 1 - Standard series) [facility] Start: 1968 HIV screening HIV Screening [facility] Start: 1968 Lipid panel Lipid Panel [facility] Start: 1968 Screening for malignant neoplasm of colon [facility] Start: 1968 Yearly Adult Physical Yearly Adult P hysical [facility] End: 10-17-2024 Bacteria identified in Urine by Culture [facility] Work Phone: Comment on above: Once (Lab) for 1 Occ urrences starting 10/17/2024 until 10/17/2024 COLOGUARD COLOGUARD Lab Ro utine Encounter for colorectal cancer screening Ordered: 11/10/2023 [facility] Comment on above: Ordered: 11/10/2023 End: 12-09-2024 DBT Breast - bilateral screening ONEIL SCREENING W ADAM Radiology Routine Encounter for screening mammogram for breast cancer 1 Occurrences starting 11/10/2023 until 12/09/2024 [facility] Work Phone: Comment on above: 1 Occurrences starti ng 11/10/2023 until 12/09/2024 End: 10-17-2024 ECG 12 lead ECG 12 lead ECG STAT Once for 1 Occurrences starting 10/17/2024 until 10/17/2024 [facility] Work Phone: Comment on above: Once for 1 Occurrenc es starting 10/17/2024 until 10/17/2024 End: 10-17-2024 Extra Urine Park Tube Extra Urine [facility] Lab Timed Once for 1 Occurrences starting 10/17/2024 until 10/17/2024 [facility] Work Phone: Comment on above: Once for 1 Occurrenc es starting 10/17/2024 until 10/17/2024 PAP TEST PAP TEST Lab Rou rosa isela Screening for cervical cancer 11/10/2023 10:01 AM EDT [facility] End: 10-17-2024 Urinalysis complete W Reflex Culture panel - Urine [facility] Service Area Work Phone: Comment on above: Once (Lab) for 1 Occ urrences starting 10/17/2024 until 10/17/2024 End: 12-24-2024 US Axilla - left US AXILLA ONLY LEFT Radiology Routine Axillary lymphadenopathy 1 Occurrences starting 11/25/2023 until 12/24/2024 [facility] Work Phone: Comment on above: 1 Occurrences starti ng 11/25/2023 until 12/24/2024 [facility] Immunizations Immunization Date Immunization Notes Care Provider Claudia hui 11-10-2023 influenza, seasonal, injectable Adin Parada APRN.PUNCH MACHINE OPERATOR Work Phone: [facility] 11-10-2023 influenza virus vacc ine, unspecified formulation Adin Parada APRN.PUNCH MACHINE OPERATOR Work Phone: [facility] Payers Date Payer Category Payer Self-pay 2021 Managed Care (Private) [facility] [facility] [facility] [id number] 2021 Private Health Insurance LYNDSEY HIGGINS [id number] 2021-Present [phone] [address] [place] [id number] Open Access [id number] 2021 Private Health Insurance [id number] 2021 Private Health Insurance [id number] 1970 Unknown [id number] Private Health Insurance [id number] Unknown [id number] Unknown [id number] Social History Date Type Detail Facility [facility] Start: 1970 Sex Assigned At Not on file [facility] Start: 08-27-2021 [facility] Never [facility] tobacco [facility] Start: 08-27-2021 Tobacco use and exposure Smokeless tobacco non-user [facility] Start: 08-17-2021 End: 08-29-2021 Exposure to SARS-CoV-2 (event) Not sure [facility] Start: 10-13-2023 End: 11-10-2023 Alcoholic beverage intake Current drinker of alcohol (finding) [facility] Start: 10-13-2023 End: 11-10-2023 History of Social function [facility] Start: 10-13-2023 End: 11-10-2023 Tobacco use panel [facility] Start: 09-02-2014 End: 10-17-2024 National Score (1-100), lower number is lower risk 66 [facility] Start: 10-13-2023 Alcohol Comment social [facility] Work Phone: Start: 1970 Sex Assigned At Female [facility] Functional Status Date Assessment Result Facility 10-17-2024 [place] - suicide s everity rating scale screener - recent [C-SSRS] [facility] Work Phone: Clinical Notes 08-27-2021 to 10-21-2024 Suzi Mosley LPN - 10/21/2024 2:34 PM EDTTelephone Encounter - Michael Sabillon MA - 12/15/2023 1:14 PM EDTTelephone Encounter - Michael Sabillon MA - 12/15/2023 1:14 PM EDTPatient Instructions Note Date & Type Note Facility 10-21-2024 History of Presen t illness Narrative ED Follow-Up Note Provider Action / FYI: Call completed by: ANIL Patient seen in ED: Out of Network ED Contact made with Patient: No, left message. Suzi Mosley LPN October 21, 2024 2:37 PM documented in this encounter [facility] 10-21-2024 Note HNO ID: [id number] Author: SUZI MOSLEY LPN Service: ? Author Type: Licensed Nurse Type: Progress Notes Filed: 10/21/2024 14:38 Note Text: ED Follow-Up Note Provider Action / FYI: Call completed by: ANIL Patient seen in ED: Out of Network ED Contact made with Patient: No, left message. Suzi Mosley LPN October 21, 2024 2:37 PM [facility] 10-21-2024 Note Patient Outreach (AG FAMPLE) BETHANY BOYD ([id number]) 1970 F Date Time Provider Department 10/21/24 ADIN PARADA During your visit today, we recorded the following information about you: Suzi Mosley LPN 10/21/2024 2:38 PM Signed ED Follow-Up Note Provider Action / FYI: Call completed by: ANIL Patient seen in ED: Out of Network ED Contact made with Patient: No, left message. Suzi Mosley LPN October 21, 2024 2:37 PM Allergies As of Date: 10/21/2024 (No Known Allergies) Date Reviewed: 11/11/2023 Reviewed by: Charles Alvarado MD - Fully Assessed Reason for Visit: ED Follow-up [821] Cmt: ISIS Yousif 10/17/2024 Prescriptions as of 10/21/2024 - multivit-minerals/folic acid (MULTIVITAMIN GUMMIES ORAL) Take by mouth. - predniSONE (DELTASONE) 10 mg tablet Take 4 tablets for 3 days, then 2 tablets for 3 days, then 1 tablet for 3 days, then stop Problem List As Of Date: 10/21/2024 (None) Encounter Status:Closed by SUZI MOSLEY on 10/21/24 [facility] 10-06-2024 Radiology Diagnostic study note [facility] Imaging Services [address] [place] [address] Extremity Lower without Contra MR#: [id number] Acct: [id number] Name: BETHANY BOYD MARY Rep #: [id number] : 1970 F 54 From: Liliam Isaac MD PCP: CAMRYN Duarte Status: REG CL I Study:Extremity Lower without Contra Date of Exam: 10/05/24 Exam# [id number] Ordering Dr: Eamon Moseley MD PROCEDURE: EXTREMITY LOWER WITHOUT CONTRA 10/05/2024 REASON FOR EXAM: POST TRAUMATIC OA TECHNIQUE: EXTREMITY LOWER WITHOUT CONTRA Coronal and Sagittal reconstruction series were provided. CONTRAST: None One or more dose reduction techniques were used (e.g., Automated exposure control, adjustment of the mA and/or kV according to patient size, use of iterative reconstruction technique). RADIATION DOSE SUMMARY: DLP: 1368 mGycm COMPARISON: None FINDINGS: There is severe tricompartment osteoarthritis, most severe in the medial compartment. There is joint space narrowing, subcortical cyst formation, and marginal osteophytes. No acute fracture or dislocation is identified. There is a 1.1 x 0.6 cm corticated osteochondral fragment in the superior lateral joint space. There lizeth trace joint effusion. There is a 4.2 cm cyst in the left adnexa partly visible. There is no visible atherosclerosis. CT/Extremity Lower without Contra IMPRESSION: There is a 4.2 cm cyst in the left adnexa partly visible. Ultrasound correlation is recommended. There is severe tricompartment osteoarthritis, most severe in the medial compartment. There is joint space narrowing, subcortical cyst formation, and marginal osteophytes. Reading Location: [facility] CC: CAMRYN Parada; Dr. Clemente Moseley MD ~ Cotton Factor: Signed [facility] 12-15-2023 Telephone encounter Note Patient informed of ultrasound results. Michael Sabillon MA [facility] 12-15-2023 Miscellaneous Notes Patient informed of ultrasound results. Michael Sabillon MA ----- Message from Adin Parada APRN.CNP sent at 12/15/2023 12:30 PM EDT ----- Please notify patient results are normal. Thank you. Adin Parada APRN.PUNCH MACHINE OPERATOR documented in this encounter [facility] 12-15-2023 Telephone encounter Note ----- Message from Adin Parada APRN.CNP sent at 12/15/2023 12:30 PM EDT ----- Please notify patient results are normal. Thank you. Adin Parada APRN.PUNCH MACHINE OPERATOR [facility] 12-15-2023 History of Presen t illness Narrative Radiology Service Progress Note PATIENT NAME: Bethany Boyd DATE OF SERVICE: December 15, 2023 TIME: 9:27 AM PATIENT IDENTITY VERIFICATION COMPLETED USING TWO (2) IDENTIFIERS: Name and Date of confirmed by patient verbally. FALL SCREENING: Has the patient had 2 falls in the last year or 1 fall with injury or currently using an Ambulatory Assistive Device (Walker, Cane, Wheelchair, Crutches, etc.)? No PATIENT GENDER DATA: Female. status: : No status: NO. PATIENT RELEVANT IMPLANT DATA REVIEWED: Not Applicable PATIENT PRESENTS WITH AN IMPLANTABLE OR ATTACHED LEAK DETECTION ENGINEER: No RADIOLOGY DEPARTMENT: Ultrasound PERIPHERAL IV DATA: Not applicable SIGNED BY: RT Pinky(Eamon) December 15, 2023 9:27 AM documented in this encounter [facility] 12-15-2023 Note HNO ID: [id number] Author: JENNA MCMULLEN RT (R) Service: Radiology Author Type: Balance Staff Inspector Type: Progress Notes Filed: 12/15/2023 09:27 Note Text: Radiology Service Progress Note PATIENT NAME: Bethany Boyd DATE OF SERVICE: December 15, 2023 TIME: 9:27 AM PATIENT IDENTITY VERIFICATION COMPLETED USING TWO (2) IDENTIFIERS: Name and Date of confirmed by patient verbally. FALL SCREENING: Has the patient had 2 falls in the last year or 1 fall with injury or currently using an Ambulatory Assistive Device (Walker, Cane, Wheelchair, Crutches, etc.)? No PATIENT GENDER DATA: Female. status: : No status: NO. PATIENT RELEVANT IMPLANT DATA REVIEWED: Not Applicable PATIENT PRESENTS WITH AN IMPLANTABLE OR ATTACHED LEAK DETECTION ENGINEER: No RADIOLOGY DEPARTMENT: Ultrasound PERIPHERAL IV DATA: Not applicable SIGNED BY: RT Pinky(Eamon) December 15, 2023 9:27 AM [facility] 11-26-2023 Telephone encounter Note Patient is informed Mary Ann Draper MA [facility] 11-26-2023 Miscellaneous Notes Patient is informed Mary Ann Draper MA Mammogram was normal besides a lump in the left axilla - likely a lymph node. They recommend getting an ultrasound - see orders. Adin Parada APRN.CNP documented in this encounter [facility] 11-25-2023 Telephone encounter Note Mammogram was normal besides a lump in the left axilla - likely a lymph node. They recommend getting an ultrasound - see orders. Adin Parada APRN.CNP [facility] 11-25-2023 Note IMPRESSION: Lymph node in the left axilla requires additional evaluation. Axillary ultrasound is recommended. BI-RADS Category 0: Incomplete: Needs Additional Imaging Evaluation RISK: Based on the Tyrer-Cuzick (TC) risk assessment model, this patient has a 4.7% lifetime risk of developing breast cancer, meaning they are at average risk for developing breast cancer. However, this is only an estimate based on available history provided on the patient's questionnaire. We encourage all patients talk with their providers about these results, further recommendations for managing breast health, and appropriate supplemental screening options if the patient has dense breast tissue. Interpreting Radiologist: Clari June M.D. Electronically signed on: 11/25/2023 Cotton Factor: MARTITA Transcribe Date/Time: Nov 24 2023 8:31A Dictated by : CLARI JUNE MD This examination was interpreted and the report reviewed and electronically signed by: CLARI JUNE MD on Nov 25 2023 2:38PM [facility]-24-2023 History of Presen t illness Narrative Radiology Service Progress Note PATIENT NAME: Bethany Boyd DATE OF SERVICE: November 24, 2023 TIME: 8:23 AM PATIENT IDENTITY VERIFICATION COMPLETED USING TWO (2) IDENTIFIERS: Name and Date of confirmed by patient verbally. FALL SCREENING: Has the patient had 2 falls in the last year or 1 fall with injury or currently using an Ambulatory Assistive Device (Walker, Cane, Wheelchair, Crutches, etc.)? No PATIENT GENDER DATA: Female. status: : No status: N/A PATIENT RELEVANT IMPLANT DATA REVIEWED: Not Applicable PATIENT PRESENTS WITH AN IMPLANTABLE OR ATTACHED LEAK DETECTION ENGINEER: No RADIOLOGY DEPARTMENT: Mammography PERIPHERAL IV DATA: Not applicable SIGNED BY: RT Estefany(Eamon) November 24, 2023 8:23 AM documented in this encounter [facility] 11-24-2023 Note HNO ID: [id number] Author: HARSHAL SIEGEL RT (R) Service: Radiology Author Type: Technologist Type: Progress Notes Filed: 11/24/2023 08:23 Note Text: Radiology Service Progress Note PATIENT NAME: Bethany Boyd DATE OF SERVICE: November 24, 2023 TIME: 8:23 AM PATIENT IDENTITY VERIFICATION COMPLETED USING TWO (2) IDENTIFIERS: Name and Date of confirmed by patient verbally. FALL SCREENING: Has the patient had 2 falls in the last year or 1 fall with injury or currently using an Ambulatory Assistive Device (Walker, Cane, Wheelchair, Crutches, etc.)? No PATIENT GENDER DATA: Female. status: : No status: N/A PATIENT RELEVANT IMPLANT DATA REVIEWED: Not Applicable PATIENT PRESENTS WITH AN IMPLANTABLE OR ATTACHED LEAK DETECTION ENGINEER: No RADIOLOGY DEPARTMENT: Mammography PERIPHERAL IV DATA: Not applicable SIGNED BY: TINY Allison) November 24, 2023 8:23 AM [facility] 11-13-2023 Telephone encounter Note Patient received my chart message. Uzma Simmons MA [facility] 11-13-2023 Miscellaneous Notes Patient received my chart message. Uzma Simmons MA Left message on patients vm to contact office and let us know if we can leave results on her vm or check her my chart message for results. Uzma Simmons MA Pap is normal, HPV negative TSH normal CBC normal Glucose 101 Liver and kidney function normal Cholesterol levels are elevated but overall risk for heart disease is low. I would like her to work on low fat diet, increase fiber, increase physical activity Lyme test is negative The 10-year ASCVD risk score (Dakotah CROWELL, et al., 2019) is: 2% Values used to calculate the score: Age: 53 years Sex: Female Is Non- : No Diabetic: No Tobacco smoker: No Systolic Blood Pressure: 128 mmHg Is BP treated: No HDL Cholesterol: 65 mg/dL Total Cholesterol: 239 mg/dL Adin Parada APRN.CNP documented in this encounter [facility] 11-13-2023 Telephone encounter Note Left message on patients vm to contact office and let us know if we can leave results on her vm or check her my chart message for results. Uzma Simmons MA [facility] 11-13-2023 Telephone encounter Note Pap is normal, HPV negative TSH normal CBC normal Glucose 101 Liver and kidney function normal Cholesterol levels are elevated but overall risk for heart disease is low. I would like her to work on low fat diet, increase fiber, increase physical activity Lyme test is negative The 10-year ASCVD risk score (Dakotah CROWELL, et al., 2019) is: 2% Values used to calculate the score: Age: 53 years Sex: Female Is Non- : No Diabetic: No Tobacco smoker: No Systolic Blood Pressure: 128 mmHg Is BP treated: No HDL Cholesterol: 65 mg/dL Total Cholesterol: 239 mg/dL Adin Parada APRN.CNP [facility] 11-11-2023 Instructions Charles Alvarado MD - 11/11/2023 10:56 AM EDT Left brow ptosis, dermatochalasis -In setting of resolved [place] palsy with mild residual frontalis weakness. Discussed options: - endoscopic brow lift to address brow ptosis (not covered by insurance, costs approx $8000) -Pretrichial brow lift (not covered by insurance, costs approx $3000) - Can consider direct brow lift (will leave a scar) - Can consider Botox for brow lift (lasts 3 mo, also cosmetic). Botox takes 1 week to set in lasts 3-4 mo, cost $12.50/unit, typical dose 25-35 units $300-450 Discussed risk of bruising, spread to cause droopy eyelid,double vision, rare allergic reaction, rare generalized weakness with neurological disorders eg. Eaton Lambert syndrome Consider left upper lid blepharoplasty, will still have some heaviness 2/2 brow ptosis, but hopefully improved. Need certain amt of skin to close eyes documented in this encounter [facility] 11-11-2023 Note HNO ID: [id number] Author: CHARLES ALVARADO MD Service: ? Author Type: Fellow Type: Progress Notes Filed: 11/11/2023 18:29 Note Text: History: Bethany Boyd is a 53 year old female who presents for subtle swelling and drooping of the left upper eyelid x3 months, waxes and wanes. Left brow feels heavy, obscures the lid platform. She denies any visual significance, no problems with reading or driving. She just feels bothered by the pressure, particularly when it is more swollen. History of left [place] palsy 3 years ago, which never fully resolved, but symptoms improved over the course of about 1 week with steroids. She noticed that in photos her left side seemed to droop a little, but never had been swollen and never as significant as it is now. Does not have these photos with her. Does not have any photos of when it gets red and swollen. No diplopia. No trouble breathing or holding up head, no changes in voice, no changes in ability to speak or swallow. No significant redness or irritation of conj, no itching. No blistering or rash. She initially thought this was allergies, but no relief with OTC allergy medications, changing make-up, sinus treatments. She tried a course of steroids for this without relief, swelling did not change. Medical hx: [place] palsy 2020. No eczema, no allergies, no asthma, no autoimmunity Meds: no prescribed medications, takes a multivitamin sometimes Allergies: NKDA Ocular hx: Negative Family hx: No history of facial or periocular swelling Social hx: No tobacco, no etoh, no drugs. No occupational or environmental exposures Exam: Normal vision, IOP, pupils EOMs full, no diplopia reported, no manifest tropia on cover-uncover testing Cami: 13.5, 13.5 @ 92 MRD1: 3.5, 3.5 Brow ptosis, left side +skin on lashes left side, no skin on lashes right side Lids everted, no mass or forniceal FB, 2+ papillary reaction to upper and lower eyelid bilaterally Normal appearing palpebral lobe of lacrimal gland CN V sensory intact Assessment: Left brow ptosis, dermatochalasis -In setting of resolved [place] palsy with mild residual frontalis weakness. - Patient bothered by feeling of heaviness, appearance. Not visually significant at this time. - No focal neurological deficit. No orbital signs, no historical evidence of inflammatory etiology (no improvement with steroids, no pain, no diplopia, no proptosis, normal lacrimal gland). Plan: Discussed options: - endoscopic brow lift to address brow ptosis (not covered by insurance, costs approx $8000) -Pretrichial brow lift (not covered by insurance, costs approx $3000) - Can consider direct brow lift (will leave a scar) - Can consider Botox for brow lift (lasts 3 mo, also cosmetic). Botox takes 1 week to set in lasts 3-4 mo, cost $12.50/unit, typical dose 25-35 units $300-450 Discussed risk of bruising, spread to cause droopy eyelid,double vision, rare allergic reaction, rare generalized weakness with neurological disorders eg. Eaton Lambert syndrome - Consider left upper lid blepharoplasty, will still have some heaviness 2/2 brow ptosis, but hopefully improved. Need certain amt of skin to close eyes - She would like to consider treatment options and return for possible botox brow lift or consideration of left blepharoplasty. - Return in 3 months, perform visual field testing at that time 2. Allergic conjunctivitis, bilateral - Can consider topical allergy medications, zaditor or patanol I have confirmed and edited as necessary the relevant ophthalmic history, ROS, and the neuro exam findings as obtained by others. I have seen and examined Bethany Boyd. I also have reviewed and agree with the assessment and plan as stated above and agree with all of its relevant components. I, Charles Alvarado MD, personally performed the services described in this documentation. I have reviewed the chart and discharge instructions (if applicable) and agree that the record reflects my personal performance and is accurate and complete. If clarification is needed regarding any of the above, please contact me directly at [phone]. Charles Alvarado MD [facility] 11-11-2023 History of Presen t illness Narrative History: Bethany Boyd is a 53 year old female who presents for subtle swelling and drooping of the left upper eyelid x3 months, waxes and wanes. Left brow feels heavy, obscures the lid platform. She denies any visual significance, no problems with reading or driving. She just feels bothered by the pressure, particularly when it is more swollen. History of left [place] palsy 3 years ago, which never fully resolved, but symptoms improved over the course of about 1 week with steroids. She noticed that in photos her left side seemed to droop a little, but never had been swollen and never as significant as it is now. Does not have these photos with her. Does not have any photos of when it gets red and swollen. No diplopia. No trouble breathing or holding up head, no changes in voice, no changes in ability to speak or swallow. No significant redness or irritation of conj, no itching. No blistering or rash. She initially thought this was allergies, but no relief with OTC allergy medications, changing make-up, sinus treatments. She tried a course of steroids for this without relief, swelling did not change. Medical hx: [place] palsy 2020. No eczema, no allergies, no asthma, no autoimmunity Meds: no prescribed medications, takes a multivitamin sometimes Allergies: NKDA Ocular hx: Negative Family hx: No history of facial or periocular swelling Social hx: No tobacco, no etoh, no drugs. No occupational or environmental exposures Exam: Normal vision, IOP, pupils EOMs full, no diplopia reported, no manifest tropia on cover-uncover testing Cami: 13.5, 13.5 @ 92 MRD1: 3.5, 3.5 Brow ptosis, left side +skin on lashes left side, no skin on lashes right side Lids everted, no mass or forniceal FB, 2+ papillary reaction to upper and lower eyelid bilaterally Normal appearing palpebral lobe of lacrimal gland CN V sensory intact Assessment: Left brow ptosis, dermatochalasis -In setting of resolved [place] palsy with mild residual frontalis weakness. - Patient bothered by feeling of heaviness, appearance. Not visually significant at this time. - No focal neurological deficit. No orbital signs, no historical evidence of inflammatory etiology (no improvement with steroids, no pain, no diplopia, no proptosis, normal lacrimal gland). Plan: Discussed options: - endoscopic brow lift to address brow ptosis (not covered by insurance, costs approx $8000) -Pretrichial brow lift (not covered by insurance, costs approx $3000) - Can consider direct brow lift (will leave a scar) - Can consider Botox for brow lift (lasts 3 mo, also cosmetic). Botox takes 1 week to set in lasts 3-4 mo, cost $12.50/unit, typical dose 25-35 units $300-450 Discussed risk of bruising, spread to cause droopy eyelid,double vision, rare allergic reaction, rare generalized weakness with neurological disorders eg. Eaton Lambert syndrome - Consider left upper lid blepharoplasty, will still have some heaviness 2/2 brow ptosis, but hopefully improved. Need certain amt of skin to close eyes - She would like to consider treatment options and return for possible botox brow lift or consideration of left blepharoplasty. - Return in 3 months, perform visual field testing at that time 2. Allergic conjunctivitis, bilateral - Can consider topical allergy medications, zaditor or patanol I have confirmed and edited as necessary the relevant ophthalmic history, ROS, and the neuro exam findings as obtained by others. I have seen and examined Bethany Boyd. I also have reviewed and agree with the assessment and plan as stated above and agree with all of its relevant components. I, Charles Alvarado MD, personally performed the services described in this documentation. I have reviewed the chart and discharge instructions (if applicable) and agree that the record reflects my personal performance and is accurate and complete. If clarification is needed regarding any of the above, please contact me directly at [phone]. Charles Alvarado MD documented in this encounter [facility] 11-10-2023 Nurse Note Pt. Given flu vaccination with no complaints. Vis given. Uzma Simmons MA [facility] 11-10-2023 Nurse Note Pt. Given flu vaccination with no complaints. Vis given. Uzma Simmons MA documented in this encounter [facility] 11-10-2023 Note HNO ID: [id number] Author: ADIN PARADA APRN.PUNCH MACHINE OPERATOR Service: ? Author Type: Nurse Practitioner Type: Progress Notes Filed: 11/10/2023 21:57 Note Text: Tee Boyd is a 53 year old female here today for well woman exam with Pap. I reviewed past medical, surgical, social, and family histories today and updated chart. Allergies, chronic medications, and supplements were also reviewed. HPI Concern(s) today include: Left eyelid still drooping and swollen. Took coarse of steriods and no change. She has eye appointment tomorrow in [place]. Bug bite to right arm prior to the left eye symptom. She has history of lyme disease with [place] palsy back in 2020 T4 (miscarriage) L4 MENSTRUAL HISTORY LMP: August 2023 Becoming more irregular No hot flashes or sweats Flow heavy with clots first few days (since last child 2007), Duration 6 days, Menarche 12 Patient on HRT: no Ever used HRT: no SEXUAL HISTORY: sexually active CONTRACEPTION: tubal ligation Hx of abnormal pap: no VAGINAL SYMPTOMS: Denies abnormal discharge, itching, pain. Denies pain with sex. BREAST: Denies lumps, nipple discharge, and pain. Last Mammogram - has been a while URINARY SYMPTOMS: Denies dysuria, urgency, frequency, hematuria. Gets up in the night maybe 1-2 times Do you experience urinary incontinence? No Colorectal cancer screening - has not had done PAST MEDICAL HISTORY Diagnosis Date Lea's palsy 2020 Tick bite 2020 PAST SURGICAL HISTORY Procedure Laterality Date DANDC, DIAG AND/OR THERAPEUTIC Miscarriage KNEE SURGERY HX Left Torn Meniscus Repair ALLERGIES Patient has no known allergies. MEDICATIONS multivit-minerals/folic acid (MULTIVITAMIN GUMMIES ORAL) Take by mouth. predniSONE (DELTASONE) 10 mg tablet Take 4 tablets for 3 days, then 2 tablets for 3 days, then 1 tablet for 3 days, then stop (Patient not taking: Reported on 11/10/2023) FAMILY HISTORY Problem Relation Age of Onset Liver Cancer Mother other (Anemia) Mother Heart Mother Heart Father Heart Attack Father No Known Problems Sister Asthma Brother other (tumor on ovary) Daughter Asthma Daughter ADD/ADHD Son Social History Tobacco Use Smoking status: Never Smokeless tobacco: Never Vaping Use Vaping status: Never Used Substance Use Topics Alcohol use: Yes Comment: social Drug use: Never Review of Systems Constitutional: Negative for appetite change, chills, fatigue, fever and unexpected weight change. HENT: Negative for congestion, ear pain, rhinorrhea and sore throat. Eyes: Negative for pain, discharge, itching and visual disturbance. Respiratory: Negative for cough, shortness of breath and wheezing. Cardiovascular: Negative for chest pain, palpitations and leg swelling. Gastrointestinal: Negative for abdominal pain, constipation, diarrhea, nausea and vomiting. Genitourinary: Negative for difficulty urinating. Musculoskeletal: Negative for arthralgias. Skin: Negative for rash. Neurological: Negative for dizziness, tremors, weakness and headaches. Psychiatric/Behavioral: Negative for dysphoric mood and sleep disturbance. The patient is not nervous/anxious. Overall okay Objective BP 128/72 Pulse 74 Temp 98.2 Ht 5' 4 (1.63m) Wt 208 lb (94.3kg) SpO2 97% BMI 35.69 kg/(m2). Physical Exam Exam conducted with a compensation adjuster present (JORDANA Simmons present). Constitutional: General: She is not in acute distress. Appearance: Normal appearance. She is well-developed. HENT: Head: Normocephalic and atraumatic. Right Ear: Hearing, tympanic membrane, ear canal and external ear normal. No drainage. Left Ear: Hearing, tympanic membrane, ear canal and external ear normal. No drainage. Nose: Nose normal. Mouth/Throat: Pharynx: Uvula midline. Eyes: General: Right eye: No discharge. Left eye: No discharge. Extraocular Movements: Extraocular movements intact. Conjunctiva/sclera: Conjunctivae normal. Pupils: Pupils are equal, round, and reactive to light. Comments: Left upper eyelid appears slightly swollen Neck: Thyroid: No thyroid mass or thyromegaly. Vascular: No carotid bruit. Cardiovascular: Rate and Rhythm: Normal rate and regular rhythm. Pulses: Radial pulses are 2+ on the right side and 2+ on the left side. Heart sounds: Normal heart sounds. No murmur heard. Pulmonary: Effort: Pulmonary effort is normal. Breath sounds: No wheezing, rhonchi or rales. Chest: Breasts: Breasts are symmetrical. Right: No inverted nipple, mass, nipple discharge, skin change or tenderness. Left: Skin change present. No inverted nipple, mass, nipple discharge or tenderness. Abdominal: General: Bowel sounds are normal. There is no distension or abdominal bruit. Palpations: Abdomen is soft. There is no mass. Tenderness: There is no abdominal tenderness. Genitourinary: General: Normal vulva. Exam position: Prone. Pubic Ar (more content not included)... [facility] 11-10-2023 History of Presen t illness Narrative Images from the original note were not included. Subjective Bethany Boyd is a 53 year old female here today for well woman exam with Pap. I reviewed past medical, surgical, social, and family histories today and updated chart. Allergies, chronic medications, and supplements were also reviewed. HPI Concern(s) today include: Left eyelid still drooping and swollen. Took coarse of steriods and no change. She has eye appointment tomorrow in [place]. Bug bite to right arm prior to the left eye symptom. She has history of lyme disease with [place] palsy back in 2020 T4 (miscarriage) L4 MENSTRUAL HISTORY LMP: August 2023 Becoming more irregular No hot flashes or sweats Flow heavy with clots first few days (since last child 2007), Duration 6 days, Menarche 12 Patient on HRT: no Ever used HRT: no SEXUAL HISTORY: sexually active CONTRACEPTION: tubal ligation Hx of abnormal pap: no VAGINAL SYMPTOMS: Denies abnormal discharge, itching, pain. Denies pain with sex. BREAST: Denies lumps, nipple discharge, and pain. Last Mammogram - has been a while URINARY SYMPTOMS: Denies dysuria, urgency, frequency, hematuria. Gets up in the night maybe 1-2 times Do you experience urinary incontinence? No Colorectal cancer screening - has not had done PAST MEDICAL HISTORY Diagnosis Date Lea's palsy 2020 Tick bite 2020 PAST SURGICAL HISTORY Procedure Laterality Date D&C, DIAG AND/OR THERAPEUTIC Miscarriage KNEE SURGERY HX Left Torn Meniscus Repair ALLERGIES Patient has no known allergies. MEDICATIONS multivit-minerals/folic acid (MULTIVITAMIN GUMMIES ORAL) Take by mouth. predniSONE (DELTASONE) 10 mg tablet Take 4 tablets for 3 days, then 2 tablets for 3 days, then 1 tablet for 3 days, then stop (Patient not taking: Reported on 11/10/2023) FAMILY HISTORY Problem Relation Age of Onset Liver Cancer Mother other (Anemia) Mother Heart Mother Heart Father Heart Attack Father No Known Problems Sister Asthma Brother other (tumor on ovary) Daughter Asthma Daughter ADD/ADHD Son Social History Tobacco Use Smoking status: Never Smokeless tobacco: Never Vaping Use Vaping status: Never Used Substance Use Topics Alcohol use: Yes Comment: social Drug use: Never Review of Systems Constitutional: Negative for appetite change, chills, fatigue, fever and unexpected weight change. HENT: Negative for congestion, ear pain, rhinorrhea and sore throat. Eyes: Negative for pain, discharge, itching and visual disturbance. Respiratory: Negative for cough, shortness of breath and wheezing. Cardiovascular: Negative for chest pain, palpitations and leg swelling. Gastrointestinal: Negative for abdominal pain, constipation, diarrhea, nausea and vomiting. Genitourinary: Negative for difficulty urinating. Musculoskeletal: Negative for arthralgias. Skin: Negative for rash. Neurological: Negative for dizziness, tremors, weakness and headaches. Psychiatric/Behavioral: Negative for dysphoric mood and sleep disturbance. The patient is not nervous/anxious. Overall okay Objective BP 128/72 Pulse 74 Temp 98.2 Ht 5' 4 (1.63m) Wt 208 lb (94.3kg) SpO2 97% BMI 35.69 kg/(m^2). Physical Exam Exam conducted with a compensation adjuster present (JORDANA Simmons present). Constitutional: General: She is not in acute distress. Appearance: Normal appearance. She is well-developed. HENT: Head: Normocephalic and atraumatic. Right Ear: Hearing, tympanic membrane, ear canal and external ear normal. No drainage. Left Ear: Hearing, tympanic membrane, ear canal and external ear normal. No drainage. Nose: Nose normal. Mouth/Throat: Pharynx: Uvula midline. Eyes: General: Right eye: No discharge. Left eye: No discharge. Extraocular Movements: Extraocular movements intact. Conjunctiva/sclera: Conjunctivae normal. Pupils: Pupils are equal, round, and reactive to light. Comments: Left upper eyelid appears slightly swollen Neck: Thyroid: No thyroid mass or thyromegaly. Vascular: No carotid bruit. Cardiovascular: Rate and Rhythm: Normal rate and regular rhythm. Pulses: Radial pulses are 2+ on the right side and 2+ on the left side. Heart sounds: Normal heart sounds. No murmur heard. Pulmonary: Effort: Pulmonary effort is normal. Breath sounds: No wheezing, rhonchi or rales. Chest: Breasts: Breasts are symmetrical. Right: No inverted nipple, mass, nipple discharge, skin change or tenderness. Left: Skin change present. No inverted nipple, mass, nipple discharge or tenderness. Abdominal: General: Bowel sounds are normal. There is no distension or abdominal bruit. Palpations: Abdomen is soft. There is no mass. Tenderness: There is no abdominal tenderness. Genitourinary: General: Normal vulva. Exam position: Prone. Pubic Area: Rash (mild erythema bilateral groin) present. Labia: Right: No rash or lesion. Left: No rash or lesion. Urethra: No urethral swelling or urethral lesion. Vagina: Normal. No vaginal discharge, erythema or lesions. Cervix: Normal. Musculoskeletal: General: Normal range of motion. Cervical back: Normal range of motion and neck supple. Right lower leg: No edema. Left lower leg: No edema. Lymphadenopathy: Cervical: No cervical adenopathy. Upper Body: Right upper body: No supraclavicular adenopathy. Left upper body: No supraclavicular adenopathy. Lower Body: No right inguinal adenopathy. No left inguinal adenopathy. Skin: General: Skin is warm and dry. Findings: No bruising or rash. Neurological: General: No focal deficit present. Mental Status: She is alert and oriented to person, place, and time. Cranial Nerves: No cranial nerve deficit. Sensory: Sensation is intact. Motor: Motor function is intact. Coordination: Coordination is intact. Gait: Gait is intact. Psychiatric: Attention and Perception: Attention and perception normal. Mood and Affect: Mood and affect normal. Speech: Speech normal. Behavior: Behavior normal. Behavior is cooperative. Thought Content: Thought content normal. Judgment: Judgment normal. ASSESSMENT/PLAN: 1. Well adult exam - ICD9: V70.0, ICD10: Z00.00 (primary diagnosis) - Counseled on healthy diet and regular exercise - Pap collected with automatic HPV for ages 30-65 - Mammogram ordered - exam recommended once yearly - Follow up for annual exam in one year 2. Encounter for gynecological examination without abnormal finding - ICD9: V72.31, ICD10: Z01.419 - Completed pelvic and breast exam - Completed pap exam - check HPV - Follow up for annual exam in one year. 3. Screening for cervical cancer - ICD9: V76.2, ICD10: Z12.4 - Completed pap exam - check HPV - Follow up for annual exam in one year. - PAP TEST 4. Encounter for screening mammogram for breast cancer - ICD9: V76.12, ICD10: Z12.31 - Completed breast exam - Set up for mammogram, yearly mammogram recommended - ONEIL SCREENING W ADAM 5. Encounter for immunization - ICD9: V03.89, ICD10: Z23 - INFLUENZA VACCINE, AGE 6MO-64YR, TRIVALENT (AFLURIA, FLULAVAL, FLUVIRIN, FLUZONE) 6. Bug bite, subsequent encounter - ICD9: V58.89, 919.4, ICD10: W57.XXXD - LYME AB LATE >30 DAYS SYMPTOMS 7. Neoplasm of uncertain behavior of skin - ICD9: 238.2, ICD10: D48.5 Referral placed to dermatology for further evaluation - CONSULT TO DERMATOLOGY 8. Change of skin of breast - ICD9: 782.8, ICD10: R23.4 - CONSULT TO DERMATOLOGY 9. Screening for diabetes mellitus - ICD9: V77.1, ICD10: Z13.1 - COMPREHENSIVE METABOLIC PANEL 10. Screening for lipid disorders - ICD9: V77.91, ICD10: Z13.220 - LIPID PANEL BASIC 11. Thyroid disorder screening - ICD9: V77.0, ICD10: Z13.29 - THYROID STIMULATING HORMONE 12. Screening for deficiency anemia - ICD9: V78.1, ICD10: Z13.0 - COMPLETE BLOOD COUNT 13. Encounter for colorectal cancer screening - ICD9: V76.51, V76.41, ICD10: Z12.11, Z12.12 - COLOGUARD Adin Parada APRN.PUNCH MACHINE OPERATOR documented in this encounter [facility] 10-13-2023 History of Presen t illness Narrative Images from the original note were not included. Subjective Bethany Boyd is a 53 year old female here today for left eye problem. I reviewed past medical, surgical, social, and family histories today and updated chart. Allergies, chronic medications, and supplements were also reviewed. Eye Problem Associated symptoms include arthralgias, fatigue and headaches. Pertinent negatives include no abdominal pain, chest pain, chills, congestion, coughing, diaphoresis, fever, nausea, neck pain, numbness, rash, sore throat, vomiting or weakness. She is a new patient, moved to the area about 3 years ago She has 4 children - 2 girls, 2 boys Left eye swelling x 3-4 months Almost feels like its infected but no drainage no watering The eye feels heavy No pain Mild headache yesterday Has a little mucus dripping in the throat No itching No rhinorrhea No sneezing Has tried nasal spray, claritin, eye drops and nothing seems to help No numbness or tingling No visual changes Sometimes looking to left sees a little black dot/floater About 1 month ago was bit by a bug - not sure what kind of bug it was A round rash appeared there Still has a smaller rash there now Did not see an actual tick She had lyme disease in 2020 - bells palsy Was treated with medication and did okay Maybe the left eyelid was droopy PAST MEDICAL HISTORY 2020: Lea's palsy 2020: Tick bite History reviewed. No pertinent surgical history. ALLERGIES Patient has no known allergies. MEDICATIONS multivit-minerals/folic acid (MULTIVITAMIN GUMMIES ORAL) Take by mouth. FAMILY HISTORY Problem Relation Age of Onset Liver Cancer Mother other (tumor on ovary) Daughter Social History Tobacco Use Smoking status: Never Smokeless tobacco: Never Vaping Use Vaping status: Never Used Substance Use Topics Alcohol use: Yes Comment: social Drug use: Never Review of Systems Constitutional: Positive for fatigue. Negative for appetite change, chills, diaphoresis, fever and unexpected weight change. HENT: Positive for postnasal drip. Negative for congestion, ear pain, rhinorrhea, sore throat and voice change. Eyes: Negative for pain, discharge, redness, itching and visual disturbance. Respiratory: Negative for cough, shortness of breath and wheezing. Cardiovascular: Negative for chest pain, palpitations and leg swelling. No history of high blood pressure but has been elevated when she donates blood Gastrointestinal: Negative for abdominal pain, constipation, diarrhea, nausea and vomiting. No stomach issues Has never had colonoscopy Genitourinary: Negative for difficulty urinating. LMP - about 7 weeks ago They are starting to taper off a little bit Musculoskeletal: Positive for arthralgias. Negative for back pain and neck pain. Was told she needs left knee replacement - gets a little swollen and painful, she is trying to put off surgery Skin: Negative for rash. Neurological: Positive for headaches. Negative for dizziness, tremors, seizures, syncope, weakness and numbness. Psychiatric/Behavioral: Negative for dysphoric mood and sleep disturbance. The patient is not nervous/anxious. Sleeps pretty well, gets up to go bathroom twice a night Objective BP 124/78 Pulse 61 Temp 97.8 Resp 16 Ht 5' 4 (1.63m) Wt 204 lb (92.5kg) SpO2 99% BMI 35.00 kg/(m^2). Physical Exam Constitutional: Appearance: She is not toxic-appearing or diaphoretic. HENT: Head: Normocephalic and atraumatic. Right Ear: Hearing, tympanic membrane, ear canal and external ear normal. Left Ear: Hearing, tympanic membrane, ear canal and external ear normal. Nose: Nose normal. No mucosal edema or rhinorrhea. Right Sinus: No frontal sinus tenderness. Left Sinus: No frontal sinus tenderness. Mouth/Throat: Lips: Kayce[place]. Mouth: Mucous membranes are moist. Pharynx: Oropharynx is clear. Eyes: Extraocular Movements: Extraocular movements intact. Conjunctiva/sclera: Conjunctivae normal. Pupils: Pupils are equal, round, and reactive to light. Comments: Left eyelid upper and lower with trace swelling Patient reports left eye felt different with EOM testing Neck: Vascular: No carotid bruit. Cardiovascular: Rate and Rhythm: Normal rate and regular rhythm. Heart sounds: Normal heart sounds. Pulmonary: Effort: Pulmonary effort is normal. Breath sounds: Normal breath sounds. Musculoskeletal: Cervical back: Normal range of motion and neck supple. Lymphadenopathy: Cervical: No cervical adenopathy. Skin: General: Skin is warm and dry. Neurological: General: No focal deficit present. Mental Status: She is alert and oriented to person, place, and time. Cranial Nerves: No cranial nerve deficit, dysarthria or facial asymmetry. Sensory: Sensation is intact. Motor: Motor function is intact. Coordination: Coordination is intact. Gait: Gait is intact. Gait normal. Comments: Fgqrbe-[id number] test normal. Psychiatric: Attention and Perception: Attention and perception normal. Mood and Affect: Mood and affect normal. Speech: Speech normal. Behavior: Behavior normal. Behavior is cooperative. Thought Content: Thought content normal. Cognition and Memory: Cognition and memory normal. Judgment: Judgment normal. ASSESSMENT/PLAN: 1. Ptosis of left eyelid - ICD9: 374.30, ICD10: H02.402 (primary diagnosis) Very mild Possible recurrence of [place] Palsy Prednisone taper 40-20-10 x 9 days Referral placed for ophthalmology - CONSULT TO OPHTHALMOLOGY 2. Swelling of left eyelid - ICD9: 374.82, ICD10: H02.846 Very mild, does not appear to be cellulitis - CONSULT TO OPHTHALMOLOGY 3. Floaters, left - ICD9: 379.24, ICD10: H43.392 - CONSULT TO OPHTHALMOLOGY Adin Parada APRN.PUNCH MACHINE OPERATOR documented in this encounter [facility] 09-09-2021 Miscellaneous Notes CD READY FOR DATA ENTRY MACHINE OPERATOR AT [facility] Patient requesting images from 08/27 of knee x-ray be burnt to CD. Patient will meat pickler Thursday PM. Aware she needs to sign release form. documented in this encounter [facility] 08-27-2021 Instructions Sabine Waller APRN.LEANNA - 08/27/2021 4:18 PM EDT R.I.C.E. The general care of your injury includes the following: Resting, Icing, Compressing and Elevating the injured area. Remember this as RICE. REST: Limit the use of the injured body part. ICE: By applying ice to the affected area, swelling and pain can be reduced. Place some ice cubes in a re-sealable (Ziploc) bag and add some water. Put a thin washcloth between the bag and your skin. Apply the ice bag to the area for at least 20 minutes. Do this at least 4 times per day. Using the ice for longer times and more frequently is OK. NEVER APPLY ICE DIRECTLY TO THE SKIN. COMPRESS: Compression means to apply pressure around the injured area such as with a splint, cast or an damon bandage. Compression decreases swelling and improves comfort. Compression should be tight enough to relieve swelling but not so tight as to decrease circulation. Increasing pain, numbness, tingling, or change in skin color, are all signs of decreased circulation. ELEVATE: Elevate the injured part. For example, elevate your foot by placing it on a chair while sitting, or propping it up on pillows when lying down. documented in this encounter [facility] 08-27-2021 History of Presen t illness Narrative Images from the original note were not included. This note was created using gamesGRABRriter. Subjective Bethany Boyd is a 51 year old female. 51 year old female with no PMH presents with complaints of left knee pain. Acute onset Thursday evening Left knee Endorses she was playing with grandchild at side of bed, States while playing, she twisted her left knee Denies direct blow or trauma Denies break in skin integrity. +pain +popping and clicking Endorses history of meniscus injury Denies additional injuries. Denies head injury or LOC Denies neck or back pain. The history is provided by the patient. No assistant speech language pathologist was used. Right injury: Yes Date: 08/23/2021 Right condition: Acute Right severity: Moderate Right progression: Unchanged Patient reports that right knee feels unstable. Patient reports feeling right knee popping. Patient reports feeling right knee not locking and not catching. Right job related: No Right aggravating factors: Deep squatting, initial steps out of bed, bending or twisting, prolonged standing, change in inclines and rapid change of direction. Right alleviating factors: Rest. History reviewed. No pertinent past medical history. No past surgical history on file. ALLERGIES Patient has no known allergies. MEDICATIONS No prescriptions on file. No family history on file. Social History Tobacco Use Smoking status: Never Smoker Smokeless tobacco: Never Used Substance Use Topics Alcohol use: Not on file Drug use: Not on file Review of Systems Constitutional: Negative for chills, diaphoresis, fatigue and fever. HENT: Negative for congestion. Eyes: Negative for photophobia, pain, discharge, redness and itching. Respiratory: Negative for apnea, choking and chest tightness. Cardiovascular: Negative for chest pain, palpitations and leg swelling. Gastrointestinal: Negative for abdominal pain, diarrhea, nausea and vomiting. Musculoskeletal: Negative for arthralgias, back pain and gait problem. Left knee pain Skin: Negative for color change, pallor, rash and wound. Allergic/Immunologic: Negative for environmental allergies, food allergies and immunocompromised state. Neurological: Negative for dizziness, facial asymmetry, light-headedness and headaches. Hematological: Negative for adenopathy. Does not bruise/bleed easily. Psychiatric/Behavioral: Negative for agitation and behavioral problems. Objective BP 122/80 Pulse 72 Temp 37.1 C (98.7 F) (Tympanic) Resp 18 Wt 92.6 kg (204 lb 3.2 oz) SpO2 98% Physical Exam Vitals and nursing note reviewed. Constitutional: General: She is not in acute distress. Appearance: Normal appearance. She is normal weight. She is not ill-appearing, toxic-appearing or diaphoretic. HENT: Head: Normocephalic and atraumatic. Right Ear: Ear canal and external ear normal. Left Ear: Ear canal and external ear normal. Nose: Nose normal. No congestion or rhinorrhea. Mouth/Throat: Mouth: Mucous membranes are moist. Pharynx: No oropharyngeal exudate or posterior oropharyngeal erythema. Eyes: General: Right eye: No discharge. Left eye: No discharge. Extraocular Movements: Extraocular movements intact. Conjunctiva/sclera: Conjunctivae normal. Pupils: Pupils are equal, round, and reactive to light. Cardiovascular: Rate and Rhythm: Normal rate and regular rhythm. Pulses: Normal pulses. Heart sounds: Normal heart sounds. No murmur heard. No friction rub. Pulmonary: Effort: Pulmonary effort is normal. No respiratory distress. Breath sounds: Normal breath sounds. No stridor. No wheezing, rhonchi or rales. Chest: Chest wall: No tenderness. Abdominal: General: Abdomen is flat. There is no distension. Palpations: Abdomen is soft. There is no mass. Tenderness: There is no abdominal tenderness. There is no right CVA tenderness, left CVA tenderness, guarding or rebound. Hernia: No hernia is present. Musculoskeletal: General: No swelling, tenderness, deformity or signs of injury. Normal range of motion. Cervical back: Normal range of motion and neck supple. No rigidity. Right lower leg: No edema. Left lower leg: No edema. Legs: Lymphadenopathy: Cervical: No cervical adenopathy. Skin: General: Skin is warm and dry. Coloration: Skin is not jaundiced or pale. Findings: No bruising, erythema, lesion or rash. Neurological: General: No focal deficit present. Mental Status: She is alert and oriented to person, place, and time. Cranial Nerves: No cranial nerve deficit. Sensory: No sensory deficit. Motor: No weakness. Coordination: Coordination normal. Gait: Gait normal. Psychiatric: Mood and Affect: Mood normal. Behavior: Behavior normal. Thought Content: Thought content normal. Judgment: Judgment normal. Assessment and Plan ASSESSMENT/PLAN: 1. Acute pain of left knee - ICD9: 719.46, ICD10: M25.562 X 4 days Injured with twisting like injury - XR KNEE GENERAL 4V AP BOTH/PA BOTH/LAT/MERC LEFT-negative for acute process - CONSULT TO ORTHOPAEDICS as ligamentous injury was discussed - KNEE IMMOBILIZER-RX printed RICE OTC analgesics Sabine Waller APRN.CNP documented in this encounter [facility] Evaluation note Diagnosis Acute pain of left knee- Primary [facility] Diagnosis Ptosis of left eyelid- Primary Unspecified ptosis of eyelid Swelling of left eyelid Floaters, left [facility] [place] [facility] Diagnosis Well adult exam- Primary Routine general medical examination at a health care facility Encounter for gynecological examination without abnormal finding Routine gynecological examination Screening for cervical cancer Screening for malignant neoplasm of the cervix Encounter for screening mammogram for breast cancer Encounter for immunization Need for other specified prophylactic vaccination against single bacterial disease Bug bite, subsequent encounter Neoplasm of uncertain behavior of skin Change of skin of breast Changes in skin texture Screening for diabetes mellitus Screening for lipid disorders Thyroid disorder screening Screening for thyroid disorder Screening for deficiency anemia Screening for other and unspecified deficiency anemia Encounter for colorectal cancer screening Special screening for malignant neoplasms, colon [facility] Diagnosis Brow ptosis, left- Primary Dermatochalasis of left upper eyelid Dermatochalasis documented [facility] this [facility] [place] [facility]* Diagnosis Acute pain of left knee documented [facility] [place] [facility]* Diagnosis Encounter for screening mammogram for breast cancer documented [facility] [place] [facility]* Diagnosis Axillary lymphadenopathy- Primary Enlargement of lymph nodes documented [facility] [place] [facility]* Diagnosis Axillary lymphadenopathy Enlargement of lymph nodes documented [facility] this [facility] [place] noteNo assessment information availableWWilson Health Work Phone: Evaluation note* Diagnosis Fall, initial encounter- Primary Hematoma of scalp, initial encounter Secondary hypertension Other secondary hypertension, unspecified documented in this encounter [facility] Work Phone: Hospital Discharge instructions* Attachments The following attachments cannot be sent through Care Everywhere. * DASH diet (Japanese) * Minor contusion ED discharge instructions (Japanese) [facility] Reason for referral (narrative)* Diagnostic Procedure Only (Urgent) - Closed Specialty Diagnoses / Procedures Referred By Roya resendez Referred To Contact XR IMAGING Diagnoses Acute pain of left knee Procedures XR KNEE GENERAL 4V AP BOTH/PA BOTH/LAT/MERC LEFT RADIOLOGIC EXAM KNEE COMPLETE 4/MORE VIEWS Sabine Waller APRN.PUNCH MACHINE OPERATOR [address] [place] [address] [place] [address] Referral ID Status Reason Start Date Expiration Date V isits Requested Visits Authorized [id number] Closed Auto-Generate d Referral 08/27/2021 09/26/2022 1 1 [facility] for referral (narrative)* Diagnostic Procedure Only (Routine) - Closed Specialty Diagnoses / Procedures Referred By Roya resendez Referred To Contact BR IMAGING Diagnoses Encounter for screening mammogram for breast cancer Procedures ONEIL SCREENING W ADAM SCREENING DIGITAL BREAST TOMOSYNTHESIS BI SCREENING MAMMOGRAPHY BI 2-VIEW BREAST INC CAD Adin Parada COMIC BOOK WRITER.PUNCH MACHINE OPERATOR [address] [place] [address] [facility] [address] [place] [address] Referral ID Status Reason Start Date Expiration Date V isits Requested Visits Authorized [id number] Closed Auto-Generate d Referral 11/10/2023 12/09/2024 1 1 [facility] for referral (narrative)* Diagnostic Procedure Only (Routine) - Authorized Specialty Diagnoses / Procedures Referred By Roya resendez Referred To Contact BR IMAGING Diagnoses Axillary lymphadenopathy Procedures US AXILLA ONLY LEFT US LMTD JOINT/OTH NONVASC XTR STRUX R-T W/IMG Adin Parada COMIC BOOK WRITER.PUNCH MACHINE OPERATOR [address] [place] [address] [facility] [address] [place] [address] Referral ID Status Reason Start Date Expiration Date Visits Requested Visits Authorized [id number] Authorized Auto-Generat ed Referral 11/25/2023 12/24/2024 1 1 [facility] for referral (narrative)* Diagnostic Procedure Only (Routine) - Closed Specialty Diagnoses / Procedures Referred By Roay t Referred To Contact BR IMAGING Diagnoses Axillary lymphadenopathy Procedures US AXILLA ONLY LEFT US LMTD JOINT/OTH NONVASC XTR STRUX R-T W/IMG Adin Parada APRN.PUNCH MACHINE OPERATOR [address] [place] [address] [facility] [address] [place] [id number] Referral ID Status Reason Start Date Expiration Date V isits Requested Visits Authorized [id number] Closed Auto-Generate d Referral 11/25/2023 12/24/2024 1 1 [facility] for referral (narrative)No reason for referral information availableWWilson Health Work Phone: [facility] Narrative* Diagnostic Procedure Only (Urgent) - Closed Specialty Diagnoses / Procedures Referred By Contac t Referred To Contact XR IMAGING Diagnoses Acute pain of left knee Procedures XR KNEE GENERAL 4V AP BOTH/PA BOTH/LAT/MERC LEFT RADIOLOGIC EXAM KNEE COMPLETE 4/MORE VIEWS Sabine Waller APRN.PUNCH MACHINE OPERATOR [address] [place] [address] [place] [address] Referral ID Status Reason Start Date Expiration Date V isits Requested Visits Authorized [id number] Closed Auto-Generate d Referral 08/27/2021 09/26/2022 1 1 [facility] for visit Narrative* Diagnostic Procedure Only (Routine) - Closed Specialty Diagnoses / Procedures Referred By Brnetac t Referred To Contact BR IMAGING Diagnoses Encounter for screening mammogram for breast cancer Procedures ONEIL SCREENING W ADAM SCREENING DIGITAL BREAST TOMOSYNTHESIS BI SCREENING MAMMOGRAPHY BI 2-VIEW BREAST INC CAD Adin Parada APRN.PUNCH MACHINE OPERATOR [address] [place] [address] [facility] [address] [place] [address] Referral ID Status Reason Start Date Expiration Date V isits Requested Visits Authorized [id number] Closed Auto-Generate d Referral 11/10/2023 12/09/2024 1 1 [facility]* Diagnostic Procedure Only (Routine) - Closed Specialty Diagnoses / Procedures Referred By Contac t Referred To Contact BR IMAGING Diagnoses Axillary lymphadenopathy Procedures US AXILLA ONLY LEFT US LMTD JOINT/OTH NONVASC XTR STRUX R-T W/IMG Adin Parada, COMIC BOOK WRITER.PUNCH MACHINE OPERATOR [address] [place] [address] [facility] Imaging [address] [place] [address] Referral ID Status Reason Start Date Expiration Date V isits Requested Visits Authorized [id number] Closed Auto-Generate d Referral 11/25/2023 12/24/2024 1 1 [facility] Summary Purpose Family History No Family History Records FoundNo Family History Records FoundNo Family History Records FoundNo Family History Records FoundNo Family History Records FoundNo Family History Records FoundNo Family History Records Found Advance Directives No Advanced Directives Records FoundNo Advanced Directives Records FoundNo Advanced Directives Records FoundNo Advanced Directives Records FoundNo Advanced Directives Records FoundNo Advanced Directives Records FoundNo Advanced Directives Records Found Reason for Referral Specialty Diagnoses / Procedures Referred By Contac t Referred To Contact Orthopedics Diagnoses Acute pain of left knee Procedures CONSULT TO ORTHOPAEDICS OFFICE/OUTPATIENT NEW HIGH MDM 60-74 MINUTES Sabine Waller, COMIC BOOK WRITER.PUNCH MACHINE OPERATOR [address] [place] [address] Referral ID Status Reason Start Date Expiration Date Visits Requested Visits Authorized [id number] Authorized PCP Requested Referral 08/27/2021 08/27/2022 1 1 Specialty Diagnoses / Procedures Referred By Contac t Referred To Contact XR IMAGING Diagnoses Acute pain of left knee Procedures XR KNEE GENERAL 4V AP BOTH/PA BOTH/LAT/MERC LEFT RADIOLOGIC EXAM KNEE COMPLETE 4/MORE VIEWS Sabine Waller, COMIC BOOK WRITER.PUNCH MACHINE OPERATOR [address] [place] [address] Xr Imaging Referral ID Status Reason Start Date Expiration Date V isits Requested Visits Authorized [id number] Closed Auto-Generate d Referral 08/27/2021 09/26/2022 1 1 Specialty Diagnoses / Procedures Referred By Contac t Referred To Contact Ophthalmology / [facility]PARTMENT Diagnoses Ptosis of left eyelid Swelling of left eyelid Floaters, left Procedures CONSULT TO OPHTHALMOLOGY OFFICE/OUTPATIENT [facility] 60 MINUTES Adin Parada, COMIC BOOK WRITER.PUNCH MACHINE OPERATOR [address] [place] [address] [facility] Referral ID Status Reason Start Date Expiration Date Visits Requested Visits Authorized [id number] Authorized PCP Requested Referral 10/13/2023 10/12/2024 1 1 Specialty Diagnoses / Procedures Referred By Contac t Referred To Contact Diagnoses Neoplasm of uncertain behavior of skin Change of skin of breast Procedures CONSULT TO DERMATOLOGY OFFICE/OUTPATIENT [facility] 60 MINUTES Adin Parada, COMIC BOOK WRITER.PUNCH MACHINE OPERATOR [address] [place] [address] Disha Treviño MD [address] [place] [address] Referral ID Status Reason Start Date Expiration Date Visits Requested Visits Authorized [id number] Authorized PCP Requested Referral 11/10/2023 11/09/2024 1 1 Specialty Diagnoses / Procedures Referred By Roya t Referred To Contact BR IMAGING Diagnoses Encounter for screening mammogram for breast cancer Procedures ONEIL SCREENING W ADAM SCREENING DIGITAL BREAST TOMOSYNTHESIS BI SCREENING MAMMOGRAPHY BI 2-VIEW BREAST INC CAD Adin Parada, COMIC BOOK WRITER.PUNCH MACHINE OPERATOR [address] [place] [address] [facility] [address] [place] [address] Referral ID Status Reason Start Date Expiration Date Visits Requested Visits Authorized [id number] Authorized Auto-Generat ed Referral 11/10/2023 12/09/2024 1 1 Chief Complaint and Reason for Visit Chief Complaint Admit Date LEFT KNEE 1AS PROTOCAL October 05, 2024 3:49pm Additional Source Comments INFORMATION SOURCE (unrecogn ized section and content) DATE CREATED AUTHOR 08/12/2017 Alecia Lanier [facility] DATE CREATED AUTHOR AUTHOR'S ORGANIZ ATION 11/13/2023 [facility] DATE CREATED AUTHOR AUTHOR'S ORGANIZ ATION 12/16/2023 [facility] DATE CREATED AUTHOR AUTHOR'S ORGANIZ ATION 10/19/2024 [facility] DATE CREATED AUTHOR AUTHOR'S ORGANIZ ATION 10/21/2024 [facility] DATE CREATED AUTHOR AUTHOR'S ORGANIZ ATION 10/23/2024 [facility] DATE CREATED AUTHOR AUTHOR'S ORGANIZ ATION 10/23/2024 [facility] Source Comments (unrecognize d section and content) In the event this informatio n is protected by the Federal Confidentiality of Alcohol and Drug Abuse Patient Records regulations: The Federal rules restrict any use of the information to criminally investigate or prosecute any alcohol or drug abuse patient.[facility] the event this information is protected by the Federal Confidentiality of Alcohol and Drug Abuse Patient Records regulations: The Federal rules restrict any use of the information to criminally investigate or prosecute any alcohol or drug abuse patient.[facility] the event this information is protected by the Federal Confidentiality of Alcohol and Drug Abuse Patient Records regulations: The Federal rules restrict any use of the information to criminally investigate or prosecute any alcohol or drug abuse patient.[facility] the event this information is protected by the Federal Confidentiality of Alcohol and Drug Abuse Patient Records regulations: The Federal rules restrict any use of the information to criminally investigate or prosecute any alcohol or drug abuse patient.[facility] the event this information is protected by the Federal Confidentiality of Alcohol and Drug Abuse Patient Records regulations: The Federal rules restrict any use of the information to criminally investigate or prosecute any alcohol or drug abuse patient.[facility] the event this information is protected by the Federal Confidentiality of Alcohol and Drug Abuse Patient Records regulations: The Federal rules restrict any use of the information to criminally investigate or prosecute any alcohol or drug abuse patient.[facility] ShawIn the event this information is protected by the Federal Confidentiality of Alcohol and Drug Abuse Patient Records regulations: The Federal rules restrict any use of the information to criminally investigate or prosecute any alcohol or drug abuse patient.[facility] ShawIn the event this information is protected by the Federal Confidentiality of Alcohol and Drug Abuse Patient Records regulations: The Federal rules restrict any use of the information to criminally investigate or prosecute any alcohol or drug abuse patient.[facility] ShawIn the event this information is protected by the Federal Confidentiality of Alcohol and Drug Abuse Patient Records regulations: The Federal rules restrict any use of the information to criminally investigate or prosecute any alcohol or drug abuse patient.[facility] ShawIn the event this information is protected by the Federal Confidentiality of Alcohol and Drug Abuse Patient Records regulations: The Federal rules restrict any use of the information to criminally investigate or prosecute any alcohol or drug abuse patient.[facility] ShawIn the event this information is protected by the Federal Confidentiality of Alcohol and Drug Abuse Patient Records regulations: The Federal rules restrict any use of the information to criminally investigate or prosecute any alcohol or drug abuse patient.[facility] ShawIn the event this information is protected by the Federal Confidentiality of Alcohol and Drug Abuse Patient Records regulations: The Federal rules restrict any use of the information to criminally investigate or prosecute any alcohol or drug abuse patient.[facility] ShawIn the event this information is protected by the Federal Confidentiality of Alcohol and Drug Abuse Patient Records regulations: The Federal rules restrict any use of the information to criminally investigate or prosecute any alcohol or drug abuse patient.[facility] Reason for Visit (unrecogniz ed section and content) Reason Comments Left Knee Pain x 4 days Reason Comments disc request Reason Comments Establish Care Eye Problem Left eye swells up c omes and goes. She notices it at night and when she strains her eyesShe states that she was bit by a tick 3-4 years ago and she got bells palsy so she's not sure if that's what is causing it Reason Comments Well Woman Reason Comments eyelid drooping Left upper, intermit tent swelling Reason Comments Results Pap, Labs Reason Comments Results Mammogram Reason Comments Results Reason Comments Fall Pt arrives with c/o of mechanical fall five days ago, with continued fatigue and headache. Pt has ecchymotic areas to left eye, forehead and cheek. Denies LOC. 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 Relationship Specialty Start Date End Date Adin Parada APRN.LEANNA [address] [place] [address] PCP - General Family Medicine 10/13/23 Railroad Car Letterer Relationship Specialty Start Date End Date Adin Parada COMIC BOOK WRITER.PUNCH MACHINE OPERATOR [address] [place] [address] PCP - General Family Medicine 10/13/23 Railroad Car Letterer Relationship Specialty Start Date End Date Adin Parada COMIC BOOK WRITER.PUNCH MACHINE OPERATOR [address] [place] [address] PCP - General Family Medicine 10/13/23 Railroad Car Letterer Relationship Specialty Start Date End Date Adin Parada COMIC BOOK WRITER.PUNCH MACHINE OPERATOR [address] [place] [address] PCP - General Family Medicine 10/13/23 Railroad Car Letterer Relationship Specialty Start Date End Date Adin Parada COMIC BOOK WRITER.PUNCH MACHINE OPERATOR [address] [place] [address] PCP - General Family Medicine 10/13/23 Railroad Car Letterer Relationship Specialty Start Date End Date Adin Parada COMIC BOOK WRITER.PUNCH MACHINE OPERATOR [address] [place] [address] PCP - General Family Medicine 10/13/23 Railroad Car Letterer Relationship Specialty Start Date End Date Adin Parada COMIC BOOK WRITER.PUNCH MACHINE OPERATOR [address] [place] [address] PCP - General Family Medicine 10/13/23 Railroad Car Letterer Relationship Specialty Start Date End Date Adin Parada APRN.CNP [address] [facility] [address] PCP - General Family Medicine 10/13/23 Team Status: Active Member Role/Relationship Status Dates Adin Parada NP, NP-Cristy Primary Care Provider Active Team Status: Inactive Member Role/Relationship Status Dates Dr. Clemente Moseley MD Attending Provider Active Start: October 05, 2024 End: October 05, 2024 Dr. Clemente Moseley MD Referring Provider Active Start: October 05, 2024 End: October 05, 2024 Adin Parada NP HAND FRETTED INSTRUMENT MAKER-C Primary Care Provider Active Start: October 05, 2024 End: October 05, 2024 Railroad Car Letterer Relationship Specialty Start Date End Date Adin Parada APRN-CNP [address] [place] [address] PCP - General Family Medicine 10/17/24 Goals (unrecognized section and content) Goals may be documented in a n alternate section FOR RECORDS PERTAINING TO PATIENTS WHO ARE OR HAVE BEEN ENROLLED IN A CHEMICAL DEPENDENCY/SUBSTANCEABUSE PROGRAM, SOME INFORMATION MAY BE OMITTED. This clinical summary was aggregated from multiple sources. Caution should be exercised in using it in the provision of clinical care. This summary normalizes information from multiple sources, and as a consequence, information in this document may materially change the coding, format and clinical context of patient data. In addition, data may be omitted in some cases. CLINICAL DECISIONS SHOULD BE BASED ON THE PRIMARY CLINICAL RECORDS. [employer] provides no warranty or guarantee of the accuracy or completeness of information in this document.
== END | disposition home or self-care (01) ==
PROVIDERS: PCP Nurse Practitioner Family; Referring Provider Orthopaedic Surgery; Visit Provider Orthopaedic Surgery
DX: Z01.818 Encounter for other preprocedural examination (principal); M17.32 Unilateral post-traumatic osteoarthritis, left knee
CPT/HCPCS: 36415; 80048; 82040; 85025; 93005